=== PATIENT | female | born 1955 | race American Indian/Alaskan Native ===

== ENCOUNTER 2017-08-14 15:30 | Emergency (ER) | payer OTHER ==
[2017-08-14 16:58] VITALS: BP 200/92
[2017-08-14 18:37] LABS: Basophils % (Auto) 0.7 % (0.0-1.8); Eosinophils # (Auto) 0.2 K/mm3 (0.0-0.4); Hemoglobin 14.1 gm/dl (10.1-14.3); Lymphocytes # (Auto) 2.3 K/mm3 (1.2-5.4); Lymphocytes % (Auto) 32.7 % (13.4-35.0); Mean Corpuscular HGB Conc 33 % (30-34); Mean Corpuscular Hemoglobin 28 pg (28-32); Mean Corpuscular Volume 86 fl (79-97); Monocytes # (Auto) 0.7 K/mm3 (0.0-0.8); Monocytes % (Auto) 9.7 % (0.0-7.3); Platelet Count 209 K/mm3 (140-440); Red Blood Count 4.99 M/mm3 (3.65-5.03); Red Cell Distribution Width 13.8 % (13.2-15.2)
[2017-08-14 18:54] LABS: BUN/Creatinine Ratio 23; Blood Urea Nitrogen 18 mg/dL (7-17); Calcium 9.4 mg/dL (8.4-10.2); Hemolysis Index 38
[2017-08-14 18:59] LABS: INR 0.82 (0.87-1.13)
[2017-08-14 19:00] LABS: Partial Thromboplastin Time 25.7 Sec. (24.2-36.6)
--- NOTE | 2017-08-14 19:02 | Cat Scan Report ---
FINAL REPORT EXAM: CT HEAD/BRAIN WO CON HISTORY: neuro deficits < 6hrs or sx present upon awakening TECHNIQUE: CT examination of the head without IV contrast PRIORS: None. FINDINGS: Medial displacement of the right orbit medial wall may be from prior trauma or developmental variation. Small anterior choroidal fissure cysts bilaterally, slightly larger on the right, developmental variation. No acute air-fluid level visualized in the included air-filled sinuses. Bone windows demonstrate no acute fracture. The brain is without mass, mass effect, hemorrhage, or acute infarct. There is no extra-axial intracranial bleed, brain bleed, or midline shift. The ventricles and sulci are age-appropriate. IMPRESSION: No acute CVA, intracranial bleed, or brain mass Medial displacement of right orbit medial wall may be from prior trauma or developmental variation Likely developmental variation with suggestion of small anterior choroidal fissure cysts bilaterally
== END 2017-08-14 20:00 | disposition left against medical advice (07) ==
LOC: ED 15:30
DX: R05 Cough (principal); Z53.21 Procedure and treatment not carried out due to patient leaving prior to being seen by health care provider
CPT/HCPCS: 36415; 70450; 80048; 84484; 85025; 85610; 85670; 85730; 93005; 93010

== ENCOUNTER 2017-08-15 16:49 | Emergency (ER) | payer OTHER ==
[2017-08-15] MEDS ORDERED: ASPIRIN PO ONE (18:09)
[2017-08-15 18:28] LABS: Basophils # (Auto) 0.1 K/mm3 (0.0-0.1); Basophils % (Auto) 0.7 % (0.0-1.8); Eosinophils # (Auto) 0.2 K/mm3 (0.0-0.4); Eosinophils % (Auto) 2.5 % (0.0-4.3); Hematocrit 42.3 % (30.3-42.9); Hemoglobin 14.1 gm/dl (10.1-14.3); Lymphocytes # (Auto) 2.6 K/mm3 (1.2-5.4); Lymphocytes % (Auto) 27.4 % (13.4-35.0); Mean Corpuscular HGB Conc 33 % (30-34); Mean Corpuscular Hemoglobin 29 pg (28-32); Mean Corpuscular Volume 86 fl (79-97); Monocytes # (Auto) 0.8 K/mm3 (0.0-0.8); Monocytes % (Auto) 8.5 % (0.0-7.3); Platelet Count 215 K/mm3 (140-440); Red Blood Count 4.93 M/mm3 (3.65-5.03); Red Cell Distribution Width 13.9 % (13.2-15.2)
[2017-08-15 18:44] LABS: BUN/Creatinine Ratio 22; Blood Urea Nitrogen 20 mg/dL (7-17); Calcium 9.2 mg/dL (8.4-10.2); Hemolysis Index 41
[2017-08-15] MEDS ORDERED: NACL 0.9% 1000 ML 0 ML ONE (19:23)
[2017-08-15] MEDS ORDERED: DILAUDID ONE (19:23)
[2017-08-15] MEDS ORDERED: ZOFRAN ONE (19:28)
[2017-08-16] MEDS ORDERED: APRESOLINE IV ONE (04:29)
--- NOTE | 2017-08-16 05:23 | Emergency Department Report ---
HPI - General Chief Complaint: Headache Time Seen by Provider: 08/16/17 04:23 - HPI HPI: This is a 62 year-old female presents to the emergency department with a complaint of a one-week history of frontal and bitemporal headaches. She also presents with very elevated blood pressure. She has a history of hypertension but says that she has not been on meds for many years as she has "not had any problems." She does not currently have a primary care physician. She is a tobacco smoker and does drink beer every day, but denies any illicit drug use. She denies any vision change, slurred speech or any other neurological deficits. She's been having a few weeks of a cough and has been taking [id number] cough medication. She denies any chest pain, shortness of breath, wheezing, back pain, fever. No recent travel or sick contacts at home. ED Past Medical Hx - Past Medical History Hx Hypertension: Yes (no meds) - Surgical History Additional Surgical History: Hernia surgery, Cysts removed from ovaries, Tonsillectomy - Social History Smoking Status: Current Every Day Smoker Substance Use Type: Alcohol - Medications Home Medications: Home Medications Medication Instructions Recorded Confirmed Last Taken Type amLODIPine [Norvasc] 10 mg PO DAILY #30 tab 08/16/17 Unknown Rx ED Review of Systems ROS: Stated complaint: HEADACHE/COUGH Other details as noted in HPI Comment: All other systems reviewed and negative Constitutional: denies: chills, fever Eyes: denies: eye pain, eye discharge, vision change ENT: denies: ear pain, throat pain Respiratory: cough. denies: shortness of breath, wheezing Cardiovascular: denies: chest pain, palpitations Gastrointestinal: denies: abdominal pain, nausea, diarrhea Genitourinary: denies: urgency, dysuria, discharge Musculoskeletal: denies: back pain, joint swelling, arthralgia Skin: denies: rash, lesions Neurological: headache. denies: numbness, paresthesias Physical Exam - Physical Exam Vital Signs: Vital Signs 08/15/17 08/16/17 08/16/17 18:04 00:16 04:24 Temperature 99 F 98.6 F 98.4 F Pulse Rate 67 57 L 58 L Respiratory 16 18 16 Rate Blood Pressure 178/94 214/109 Blood Pressure 215/131 [Left] O2 Sat by Pulse 97 97 99 Oximetry 08/16/17 04:55 Temperature Pulse Rate 75 Respiratory 16 Rate Blood Pressure Blood Pressure 188/88 [Left] O2 Sat by Pulse Oximetry Physical Exam: GENERAL: The patient is well-developed well-nourished. HENT: Normocephalic. Atraumatic. Patient has moist mucous membranes. EYES: Extraocular motions are intact. Pupils equal reactive to light bilaterally. No nystagmus. NECK: Supple. Trachea is midline. CHEST/LUNGS: Lungs are clear to auscultation. No cough heard during examination. No tachypnea or chest muscle use. No respiratory distress noted. HEART/CARDIOVASCULAR: Regular. There is no tachycardia. There is no murmur. ABDOMEN: Abdomen is soft, nontender. Patient has normal bowel sounds. Obese habitus. SKIN: Skin is warm and dry. NEURO: The patient is awake, alert, and oriented. The patient is cooperative. The patient has no focal neurologic deficits. The patient has normal speech. MUSCULOSKELETAL: There is no tenderness or deformity. There is no limitation range of motion. There is no evidence of acute injury. ED Course Vital Signs 08/15/17 08/16/17 08/16/17 18:04 00:16 04:24 Temperature 99 F 98.6 F 98.4 F Pulse Rate 67 57 L 58 L Respiratory 16 18 16 Rate Blood Pressure 178/94 214/109 Blood Pressure 215/131 [Left] O2 Sat by Pulse 97 97 99 Oximetry 08/16/17 04:55 Temperature Pulse Rate 75 Respiratory 16 Rate Blood Pressure Blood Pressure 188/88 [Left] O2 Sat by Pulse Oximetry ED Medical Decision Making - Lab Data Result diagrams: 08/15/17 18:12 08/15/17 18:12 - Radiology Data Radiology results: report reviewed From 08/14/17: CT of the head does not show any acute intracranial process including no ischemia, shift, mass, bleeding or skull fracture. - Medical Decision Making Patient presents with elevated blood pressure and a history of headaches. She had a CT of the head done 2 days ago but eloped at that time prior to seeing a physician. It did not show any bleed, shift, mass or any acute process. Today the patient has labs that are mostly unremarkable. No electrolyte abnormalities , renal insufficiency, glucose abnormalities. An IV was placed and the patient was given a single dose of hydralazine and her blood pressure came down to a more reasonable level. She says that she is feeling better and her headache has almost resolved. The rest of her vitals are unremarkable. There is no focal, motor or sensory deficits in her cranial nerves are intact. Discussed tobacco cessation. We discussed dietary and lifestyle changes. She'll be started on Norvasc. She will keep a blood pressure log. She was given multiple referrals for primary care physicians. She will return to the ER with any worsening of her symptoms or any acute distress. - Differential Diagnosis tension headache, migraine,, hypertensive crisis Critical Care Time: No Critical care attestation.: If time is entered above; I have spent that time in minutes in the direct care of this critically ill patient, excluding procedure time. ED Disposition Clinical Impression: Hypertensive urgency Headache Qualifiers: Headache type: unspecified Headache chronicity pattern: episodic headache Intractability: not intractable Qualified Code(s): R51 - Headache Disposition: DC-01 TO HOME OR SELFCARE Is pt being admited?: No Condition: Stable Instructions: Hypertension (ED) Additional Instructions: Please follow up with a primary care physician in the next few days if possible. I have started you on a blood pressure medication, Norvasc/amlodipine that is to be taken once daily, usually in the morning. Try and stay away from foods that are high in salt and caffeinated products. Try and quit smoking. Keep a blood pressure log. Return to the emergency Department with any worsening of her symptoms or any acute distress. Prescriptions: amLODIPine [Norvasc] 10 mg PO DAILY #30 tab Referrals: FELIZ MERCHANT MD [Staff Physician] - 3-5 Days SHELLEY MAYS MD [Staff Physician] - 3-5 Days [facility] [Outside] - 3-5 Days Time of Disposition: 05:25
[2017-08-16 05:30] VITALS: BP 169/82
== END 2017-08-16 05:35 | disposition home or self-care (01) ==
LOC: ED 16:49
DX: I16.0 Hypertensive urgency (principal); F17.200 Nicotine dependence, unspecified, uncomplicated
CPT/HCPCS: 36415; 80048; 84484; 85025; 93005; 93010; 96374; 99284; J0360; J1170; J2405; J7030

== ENCOUNTER 2019-08-28 13:02 | Inpatient (IN) | payer OTHER ==
[2019-08-28] MEDS ORDERED: cloNIDine 0.2 MG TAB PO ONE (14:36)
--- NOTE | 2019-08-28 14:41 | Emergency Department Report ---
- General Chief complaint: High BP Stated complaint: BLURR VISION/HBP Time Seen by Provider: 08/28/19 14:28 Source: patient Mode of arrival: Ambulatory Limitations: No Limitations - History of Present Illness Initial comments: Patient is a 64-year-old female that presents emergent with complaints of left- sided weakness and difficulties walking and blurry vision and elevated blood pressure. Patient states that her blood pressure medication for 2 years. Patient states her symptoms started yesterday at 5 PM. Patient states her last a while times 5 PM yesterday. Patient denies chest pain. Patient is respiratory patient states she is having a right-sided headache. Patient states some blurry vision. Patient states her symptoms are better with rest and worse with movement. MD Complaint: focal weakness, numbness, tingling, difficulty walking -: Sudden Location: other (wilde) Severity: severe Severity scale (0 -10): 8 Quality: sharp Consistency: constant Improves with: rest Worsens with: movement Context: other Associated Symptoms: headaches. denies: chest pain, confusion, dark stools, diaphoresis, dysuria, easy bruising, fever/chills, loss of appetite, nausea/vomiting, myalgias, rash, shortness of breath, syncope - Related Data Previous Rx's Medication Instructions Recorded Last Taken Type amLODIPine 10 mg PO DAILY #30 tab 08/16/17 Unknown Rx Allergies Allergy/AdvReac Type Severity Reaction Status Date / Time No Known Allergies Allergy Verified 08/28/19 13:44 ED Review of Systems ROS: Stated complaint: BLURR VISION/HBP Other details as noted in HPI Constitutional: denies: chills, fever Eyes: vision change. denies: eye pain, eye discharge ENT: denies: ear pain, throat pain Respiratory: denies: cough, shortness of breath, wheezing Cardiovascular: denies: chest pain, palpitations Endocrine: no symptoms reported Gastrointestinal: denies: abdominal pain, nausea, diarrhea Genitourinary: denies: urgency, dysuria, discharge Musculoskeletal: denies: back pain, joint swelling, arthralgia Skin: denies: rash, lesions Neurological: as per HPI, headache, weakness, other. denies: paresthesias Psychiatric: denies: anxiety, depression Hematological/Lymphatic: denies: easy bleeding, easy bruising ED Past Medical Hx - Past Medical History Previous Medical History?: Yes Hx Hypertension: Yes (no meds) - Surgical History Past Surgical History?: Yes Additional Surgical History: Hernia surgery, Cysts removed from ovaries, Tonsillectomy - Family History Family history: no significant - Social History Smoking Status: Current Every Day Smoker Substance Use Type: Alcohol - Medications Home Medications: Home Medications Medication Instructions Recorded Confirmed Last Taken Type amLODIPine 10 mg PO DAILY #30 tab 08/16/17 08/28/19 Unknown Rx ED Physical Exam - General Limitations: No Limitations General appearance: alert, in no apparent distress - Head Head exam: Present: atraumatic, normocephalic - Eye Eye exam: Present: normal appearance, PERRL Pupils: Present: normal accommodation - ENT ENT exam: Present: mucous membranes moist - Neck Neck exam: Present: normal inspection - Respiratory Respiratory exam: Present: normal lung sounds bilaterally. Absent: respiratory distress, wheezes, rales - Cardiovascular Cardiovascular Exam: Present: regular rate, normal rhythm. Absent: systolic murmur, diastolic murmur, rubs, gallop - GI/Abdominal GI/Abdominal exam: Present: soft, normal bowel sounds. Absent: distended, tenderness, guarding - Rectal Rectal exam: Present: deferred - Extremities Exam Extremities exam: Present: normal inspection, full ROM. Absent: tenderness - Back Exam Back exam: Present: normal inspection, full ROM. Absent: tenderness - Neurological Exam Neurological exam: Present: alert, oriented X3 - Psychiatric Psychiatric exam: Present: normal affect, normal mood - Skin Skin exam: Present: warm, dry, intact, normal color. Absent: rash - Assessment Assessment Interval: Baseline - Level of Consciousness 1a. Level of Consciousness: alert/keenly responsive - LOC Questions 1b. LOC Questions: answers both correctly - LOC Command 1c. LOC Commands: performs tasks correctly - Best Gaze 2. Best Gaze: normal - Visual 3. Visual: partial hemianopia - Facial Palsy 4. Facial Palsy: normal symmetrical movement - Motor Arm 5a. Motor Arm Left: no drift 5b. Motor Arm Right: no drift - Motor Leg 6a. Motor Leg Left: no drift 6b. Motor Leg Right: no drift - Limb Ataxia 7. Limb Ataxia: absent - Sensory 8. Sensory: normal - Best Language 9. Best Language: no aphasia - Dysarthria 10. Dysarthria: normal - Extinction and Inattention 11. Extinction/Inattention: no abnormality - Scoring Total Score: 1 Stroke Severity: Minor Stroke ED Course Vital Signs 08/28/19 08/28/19 08/28/19 13:11 15:53 16:05 Temperature 98.2 F Pulse Rate 65 53 L Respiratory 14 16 Rate Blood Pressure 210/120 Blood Pressure 250/112 193/118 [Left] O2 Sat by Pulse 98 96 Oximetry 08/28/19 08/28/19 08/28/19 17:33 18:09 18:52 Temperature Pulse Rate 50 L 84 50 L Respiratory 16 16 16 Rate Blood Pressure Blood Pressure 182/101 203/111 169/78 [Left] O2 Sat by Pulse 100 98 100 Oximetry - Reevaluation(s) Reevaluation #1: Initial evaluation. Patient's blood pressure significantly elevated at 270/139. Patient will be given clonidine 0.2 mg. We will continue to monitor blood pressure. Blood pressure goal No more than 20%. 08/28/19 14:28 Reevaluation #2: Recent blood pressure is improved. We will continue to slowly bring down her blood pressure. I discussed the case with a neurologist neurologist does not recommend any further endovascular procedures. I discussed results with the patient. I discussed plan of care with patient. Patient agrees with plan of care and admission. Patient will be admitted to the hospitalist service. 08/28/19 17:34 Reevaluation #3: Patient's blood pressure continues to fluctuate. Patient was placed on nicardipine drip so he can properly manage her blood pressure. 08/28/19 18:21 - Consultations Consultation #1: Discussed case with neurologist. Neurologist recommends CTA immediately. Patient is going to CT now. 08/28/19 14:57 Consultation #2: Hospitalist consult for admission. Os was to the patient. Patient to be admitted to the ICU. Bridge orders place. 08/28/19 17:35 ED Medical Decision Making - Lab Data Result diagrams: 08/28/19 14:44 08/28/19 14:44 - EKG Data -: EKG Interpreted by Me EKG shows normal: sinus rhythm, axis, intervals, QRS complexes, ST-T waves Rate: bradycardia - Radiology Data Radiology results: report reviewed CT head/brain wo con INDICATION / CLINICAL INFORMATION: 64 years Female; MAIN: CODE STROKE CALL [phone]. TECHNIQUE: Routine CT head without contrast. All CT scans at this location are performed using CT dose reduction for ALARA by means of automated exposure control. COMPARISON: 08/14/2017 FINDINGS: BRAIN / INTRACRANIAL CONTENTS: Branch [employer] CLERK infarct seen on the right, which is subacute in age, predominantly involving the occipital lobe. Calcarine cortex is certainly involved. There is also a low density area in the splenium of the corpus callosum, which may also represent ischemia. No signs of hemorrhagic transformation. Old perivascular space seen in the inferior gangliocapsular region on the right. Otherwise, no acute hemorrhage, mass effect, midline shift, hydrocephalus, or acute, large territorial infarct. No chronic infarct or atrophy appreciated. No significant white matter abnormality. CRANIOCERVICAL JUNCTION: No significant abnormality. ORBITS: Focal dehiscent seen in the lamina papyracea on the right. SINUSES / MASTOIDS: There may be minimal mucosal thickening in the mastoids. ADDITIONAL FINDINGS: Atherosclerotic disease is seen in the anterior and posterior circulation. IMPRESSION: 1. Ischemic changes seen in the right EX[employer] DOC[employer]ENTS CLERK territory as described above. No signs of hemorrhagic transformation. ADDENDUM Addendum: Please note right vertebral artery is occluded at the extraspinal segment. No significant narrowing in the intracranial internal carotid arteries. Signer Name: Guerita Mcghee MD Signed: 08/28/2019 5:02 PM Workstation Name: [id number] Addendum Transcribed By: TOMASA Addendum Dictated By: Guerita Miner MD Addendum Electronically Authenticated By: Guerita Miner MD Addendum Signed Date/Time: 08/28/191701 DD/ TD/TT: / CTA HEAD WITH CONTRAST HISTORY: Stroke COMPARISON: None. TECHNIQUE: Routine non-contrast CT Head, CTA of the head and post-contrast CT Head are performed. 3-D/MIP reformats postprocessed. All CT scans at this location are performed us ing CT dose reduction for ALARA by means of automated exposure control CONTRAST: 100 ml of Omnipaque 350 FINDINGS: CTA Head: Intracranial vertebral arteries: Right internal carotid artery is occluded at the extraspinal segment. Calcified atheromatous changes are seen in the intradural segment of left vertebral artery. Origin of left PICA is normal. Circulation from the left side is supplying the right PICA. Basilar artery: No significant abnormality. Basilar tip is normal. Posterior cerebral arteries: Left posterior cerebral artery is normal. Right posterior cerebral artery in the junction of P1 and P2 segments. Segment. Both posterior communicating arteries are contributing to posterior cerebral arteries more on the right side. Atheromatous changes are seen in the right posterior communicating artery. Decreased flow is seen in the right posterior cerebral artery. Intracranial internal carotid arteries: No significant abnormality. Anterior cerebral arteries: No significant stenosis seen at the origin of right anterior cerebral artery. Origin of left anterior cerebral artery is normal. Both T1 and proximal A2 segments are normal. Middle cerebral arteries: Both the M1 segments are normal. Small vessel disease seen at all 3 circulation. Dural venous sinuses:Not optimally opacified. No significant abnormality. Additional findings: None. IMPRESSION: 1. Flow in the right posterior cerebral artery is limited. Small vessel disease in all 3 territories. CTA NECK WITH CONTRAST HISTORY: Weakness COMPARISON: CT scan of the head obtained earlier today TECHNIQUE: Routine CTA of the neck was performed. 3-D/MIP reformats were postprocessed. Percentage stenosis is determined by direct quantitative measurements of diseased internal carotid artery diameter compared with normal distal internal carotid artery reference segments or by criteria similar to NASCET where applicable.All CT scans at this location are performed using CT dose reduction for ALARA by means of automated exposure control CONTRAST: 100 ml of Isovue 370 FINDINGS: Aortic arch: No significant abnormality. Cervical vertebral arteries: Venous contamination obscures the details of the proximal vertebral arteries bilaterally. Left vertebral origin appears normal. Right vertebral origin is also normal. However, right vertebral artery is smaller in size and appears to be occluded at the extraspinal level. Left vertebral artery continues as basilar artery. Common carotid arteries: No significant abnormality. Carotid bifurcations: Right carotid bifurcation is normal. Atheromatous plaque is seen in the distal left common carotid artery extending into the proximal left internal carotid artery with very minimal (approximately 30%). Cervical internal carotid arteries: No significant abnormality. Additional findings: None. 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 Patient's NIH O+ for minor stroke. Patient had a "stroke (initiated immediately upon arrival. Patient's head CT is negative for hemorrhage but shows subacute stroke. Patient's CTA head and neck done and shows occlusions. Due the patient is outside the window for endovascular treatment and TPA. Patient's blood pressure control as fluctuation patient was placed on nicardipine drip in order to better control her blood pressure. Patient's blood pressure: 180-190. Patient has been off her blood pressure medications for 2 years and blood pressure upon arrival was 270/139. Patient la bs unremarkable. Patient admitted to the ICU. - Differential Diagnosis mode hypertension, stroke, left-sided weakness, visual changes. Critical Care Time: Yes Critical care time in (mins) excluding proc time.: 55 Critical care attestation.: If time is entered above; I have spent that time in minutes in the direct care of this critically ill patient, excluding procedure time. Critical Care Time: 55 minutes ED Disposition Clinical Impression: Weakness, Blurred vision, Left-sided weakness, Numbness, Malignant hypertension, Noncompliance Headache Qualifiers: Headache type: unspecified Headache chronicity pattern: acute headache Intra ctability: intractable Qualified Code(s): R51 - Headache CVA (cerebral vascular accident) Qualifiers: CVA mechanism: unspecified Qualified Code(s): I63.9 - Cerebral infarction, unspecified Disposition: DC-09 OP ADMIT IP TO THIS HOSP Is pt being admited?: Yes Does the pt Need Aspirin: No Condition: Critical Time of Disposition: 17:34
[2019-08-28 14:51] LABS: Basophils # (Auto) 0.1 K/mm3 (0.0-0.1); Basophils % (Auto) 0.5 % (0.0-1.8); Eosinophils # (Auto) 0.1 K/mm3 (0.0-0.4); Eosinophils % (Auto) 1.4 % (0.0-4.3); Hematocrit 46.6 % (30.3-42.9); Hemoglobin 15.4 gm/dl (10.1-14.3); Lymphocytes # (Auto) 2.3 K/mm3 (1.2-5.4); Lymphocytes % (Auto) 23.9 % (13.4-35.0); Mean Corpuscular HGB Conc 33 % (30-34); Mean Corpuscular Volume 86 fl (79-97); Monocytes # (Auto) 0.7 K/mm3 (0.0-0.8); Monocytes % (Auto) 7.2 % (0.0-7.3); Platelet Count 276 K/mm3 (140-440); Red Blood Count 5.44 M/mm3 (3.65-5.03); Red Cell Distribution Width 14.4 % (13.2-15.2)
[2019-08-28 15:01] LABS: INR 0.94 (0.87-1.13)
[2019-08-28 15:02] LABS: Partial Thromboplastin Time 25.8 Sec. (24.2-36.6); Thrombin Time 16.5 Sec. (15.1-19.6)
[2019-08-28 15:03] LABS: BUN/Creatinine Ratio 18; Blood Urea Nitrogen 21 mg/dL (7-17); Calcium 9.9 mg/dL (8.4-10.2); Hemolysis Index 3
--- NOTE | 2019-08-28 15:06 | Consultation ---
History of Present Illness Consult date: 08/28/19 Medications and Allergies Allergies Allergy/AdvReac Type Severity Reaction Status Date / Time No Known Allergies Allergy Verified 08/28/19 13:44 Home Medications Medication Instructions Recorded Confirmed Last Taken Type amLODIPine 10 mg PO DAILY #30 tab 08/16/17 Unknown Rx Physical Examination - Vital Signs Vital Signs: Vital Signs Temp Pulse Resp BP Pulse Ox 98.2 F 65 14 250/112 98 08/28/19 13:11 08/28/19 13:11 08/28/19 13:11 08/28/19 13:11 08/28/19 13:11 Results - Laboratory Findings CBC and BMP: 08/28/19 14:44 08/28/19 14:44 Abnormal Lab Findings: Abnormal Labs 08/28/19 08/28/19 14:44 14:44 RBC 5.44 H Hgb 15.4 H Hct 46.6 H BUN 21 H Glucose 102 H Assessment and Plan [facility] Date of Service: 08/28/2019 14:34:57 Impression: RO Acute Ischemic Stroke vs PRES (Posterior reversible encephalopathy syndrome) vs hypertensive emergency Comments: patient with history of hypertension, presents with blurred vision for about 24 hours, found to have extremely high Blood Pressure, possible small field cut on the left, last time known well>4.5 hours therefore not a candidate for IV tPA. will do STAT head and neck CTA to investigate for Large Vessel Occlusion. Mechanism of Stroke: Possible Thromboembolic Small Vessel Disease Metrics: Last Known Well: 08/27/2019 15:00:00 [facility] Notification Time: 08/28/2019 14:34:22 Arrival Time: 08/28/2019 13:02:00 Stamp Time: 08/28/2019 14:34:57 Time First Login Attempt: 08/28/2019 14:40:59 Video Start Time: 08/28/2019 14:40:59 Symptoms: blurred vision NIHSS Start Assessment Time: 08/28/2019 14:42:41 Patient is not a candidate for tPA. Patient was not deemed candidate for tPA thrombolytics because of Last Well Known Above 4.5 Hours. Video End Time: 08/28/2019 15:04:27 CT head was reviewed. Advanced imaging CTA head and neck obtained. ED Physician notified of diagnostic impression and management plan on 08/28/2019 14:59:35 Our recommendations are outlined below. Recommendations: Activate Stroke Protocol Admission/Order Set Stroke/Telemetry Floor Neuro Checks Bedside Swallow Eval DVT Prophylaxis IV Fluids, Normal Saline Head of Bed Below 30 Degrees Euglycemia and Avoid Hyperthermia (PRN Acetaminophen) Antiplatelet Therapy Recommended Gentle decrease in Systolic Blood Pressure (~15%) in the ER Recommended Scan: MRI Head Without Contrast Lipid Panel to Be Obtained, if Not Done in the Last Three Months Therapies: Physical Therapy, Occupational Therapy, Speech Therapy Assessment When Applicable Dysphaghia Screen: Swallow Evaluation, Bedside NPO Until Swallow Evaluation DVT prophylaxis: SCDs, Pneumatic Compression Disposition: Follow up with Teleneurology Follow up Sign Out: Discussed with Emergency Department Provider History of Present Illness: Patient is a 64 year old Female. Patient was brought by private transportation with symptoms of blurred vision with history of hypertension last known well: 08/27/2019 15:00 developed blurred vision Blood Pressure: 255/128 CT head was reviewed. Examination: 1A: Level of Consciousness - Alert; keenly responsive + 0 1B: Ask Month and Age - Both Questions Right + 0 1C: Blink Eyes & Squeeze Hands - Performs Both Tasks + 0 2: Test Horizontal Extraocular Movements - Normal + 0 3: Test Visual Lopez - Partial Hemianopia + 1 4: Test Facial Palsy (Use Grimace if Obtunded) - Normal symmetry + 0 5A: Test Left Arm Motor Drift - No Drift for 10 Seconds + 0 5B: Test Right Arm Motor Drift - No Drift for 10 Seconds + 0 6A: Test Left Leg Motor Drift - No Drift for 5 Seconds + 0 6B: Test Right Leg Motor Drift - No Drift for 5 Seconds + 0 7: Test Limb Ataxia (FNF/Heel-Conway) - No Ataxia + 0 8: Test Sensation - Normal; No sensory loss + 0 9: Test Language/Aphasia - Normal; No aphasia + 0 10: Test Dysarthria - Normal + 0 11: Test Extinction/Inattention - No abnormality + 0 NIHSS Score: 1 Patient was informed the Neurology Consult would happen via TeleHealth consult by way of interactive audio and video telecommunications and consented to [facility] care in this manner. Due to the immediate potential for life-threatening deterioration due to underlying acute neurologic illness, I spent 35 minutes providing critical care. This time includes time for face to face visit via telemedicine, review of medical records, imaging studies and discussion of findings with providers, the patient and/or family. Dr Matt Kelly [facility] Case [id number]
--- NOTE | 2019-08-28 15:38 | Cat Scan Report ---
CT head/brain wo con INDICATION / CLINICAL INFORMATION: 64 years Female; MAIN: CODE STROKE CALL [phone]. TECHNIQUE: Routine CT head without contrast. All CT scans at this location are performed using CT dos e reduction for ALARA by means of automated exposure control. COMPARISON: 08/14/2017 FINDINGS: BRAIN / INTRACRANIAL CONTENTS: Branch ACID PATROLLER infarct seen on the right, which is subacute in age, predom inantly involving the occipital lobe. Calcarine cortex is certainly involved. There is also a low den sity area in the splenium of the corpus callosum, which may also represent ischemia. No signs of hemo rrhagic transformation. Old perivascular space seen in the inferior gangliocapsular region on the right. Otherwise, no acute hemorrhage, mass effect, midline shift, hydrocephalus, or acute, large territori al infarct. No chronic infarct or atrophy appreciated. No significant white matter abnormality. CRANIOCERVICAL JUNCTION: No significant abnormality. ORBITS: Focal dehiscent seen in the lamina papyracea on the right. SINUSES / MASTOIDS: There may be minimal mucosal thickening in the mastoids. ADDITIONAL FINDINGS: Atherosclerotic disease is seen in the anterior and posterior circulation. IMPRESSION: 1. Ischemic changes seen in the right ACID PATROLLER territory as described above. No signs of hemorrhagic trans formation. This exam was performed as part of a code stroke protocol. The exam was completed on 08/28/2019 2:16 P M. The exam was reviewed at 2:[address] Fernandez was notified at 2:30 PM. Signer Name: Hugh Gomez MD, III Signed: 08/28/2019 3:34 PM Workstation Name: [id number]
--- NOTE | 2019-08-28 16:48 | Cat Scan Report ---
CTA HEAD WITH CONTRAST HISTORY: Stroke COMPARISON: None. TECHNIQUE: Routine non-contrast CT Head, CTA of the head and post-contrast CT Head are performed. 3-D /MIP reformats postprocessed. All CT scans at this location are performed using CT dose reduction for ALARA by means of automated exposure control CONTRAST: 100 ml of Omnipaque 350 FINDINGS: CTA Head: Intracranial vertebral arteries: Right internal carotid artery is occluded at the extraspinal segment . Calcified atheromatous changes are seen in the intradural segment of left vertebral artery. Origin of left PICA is normal. Circulation from the left side is supplying the right PICA. Basilar artery: No significant abnormality. Basilar tip is normal. Posterior cerebral arteries: Left posterior cerebral artery is normal. Right posterior cerebral arter y in the junction of P1 and P2 segments. Segment. Both posterior communicating arteries are contribut ing to posterior cerebral arteries more on the right side. Atheromatous changes are seen in the right posterior communicating artery. Decreased flow is seen in the right posterior cerebral artery. Intracranial internal carotid arteries: No significant abnormality. Anterior cerebral arteries: No significant stenosis seen at the origin of right anterior cerebral art malcom. Origin of left anterior cerebral artery is normal. Both T1 and proximal A2 segments are normal. Middle cerebral arteries: Both the M1 segments are normal. Small vessel disease seen at all 3 circulation. Dural venous sinuses:Not optimally opacified. No significant abnormality. Additional findings: None. IMPRESSION: 1. Flow in the right posterior cerebral artery is limited. Small vessel disease in all 3 territories. CTA NECK WITH CONTRAST HISTORY: Weakness COMPARISON: CT scan of the head obtained earlier today TECHNIQUE: Routine CTA of the neck was performed. 3-D/MIP reformats were postprocessed. Percentage s tenosis is determined by direct quantitative measurements of diseased internal carotid artery diamete r compared with normal distal internal carotid artery reference segments or by criteria similar to NA SCET where applicable.All CT scans at this location are performed using CT dose reduction for ALARA b y means of automated exposure control CONTRAST: 100 ml of Isovue 370 FINDINGS: Aortic arch: No significant abnormality. Cervical vertebral arteries: Venous contamination obscures the details of the proximal vertebral rod radha bilaterally. Left vertebral origin appears normal. Right vertebral origin is also normal. Howeve r, right vertebral artery is smaller in size and appears to be occluded at the extraspinal level. Lef t vertebral artery continues as basilar artery. Common carotid arteries: No significant abnormality. Carotid bifurcations: Right carotid bifurcation is normal. Atheromatous plaque is seen in the distal left common carotid artery extending into the proximal left internal carotid artery with very minimal (approximately 30%). Cervical internal carotid arteries: No significant abnormality. Additional findings: None. IMPRESSION: Atheromatous plaque with approximately 30% stenoses in the proximal left internal carotid artery Left vertebral artery continues as basilar artery Occluded right vertebral artery at the extraspinal segment Signer Name: Guerita Mcghee MD Signed: 08/28/2019 4:44 PM Workstation Name: [id number]
--- NOTE | 2019-08-28 17:05 | Cat Scan Report ---
CTA NECK WITH CONTRAST HISTORY: Right posterior cerebral artery territory infarction COMPARISON: None. TECHNIQUE: Routine CTA of the neck was performed. 3-D/MIP reformats were postprocessed. Percentage s tenosis is determined by direct quantitative measurements of diseased internal carotid artery diamete r compared with normal distal internal carotid artery reference segments or by criteria similar to NA SCET where applicable.All CT scans at this location are performed using CT dose reduction for ALARA b y means of automated exposure control CONTRAST: 100 ml of Isovue 370 FINDINGS: Aortic arch: No significant abnormality. Cervical vertebral arteries: Venous contamination obscuring the details of the proximal vertebral art eries bilaterally. However, I believe both vertebral origins are normal. Right vertebral artery is sm aller in size and is occluded at the extraspinal level (between C1 and foramen magnum. Left vertebral artery continues as basilar artery. Common carotid arteries: No significant abnormality. Carotid bifurcations: Right carotid bifurcation is normal. Atheromatous plaque is seen in the distal left common carotid artery extending into the proximal left internal carotid artery with the about 30% narrowing. Cervical internal carotid arteries: No significant abnormality. Additional findings: None. IMPRESSION: Atheromatous plaque in the left common carotid bifurcation with the 30% narrowing Signer Name: Guerita Mcghee MD Signed: 08/28/2019 5:01 PM Workstation Name: [id number]
[2019-08-28] MEDS ORDERED: ASPIRIN 325 MG TAB PO ONE (17:32)
[2019-08-28] MEDS ORDERED: niCARdipine 50 MG in SODIUM CHLORIDE 0.9% 250ML 230 ML IV SCH (19:00)
--- NOTE | 2019-08-28 23:20 | History and Physical Report ---
History of Present Illness Date of examination: 08/28/19 Date of admission: 08/28/19 17:55 Chief complaint: Left-sided weakness and blurred vision for the last 4 and half hours History of present illness: 64-year-old female with history of hypertension comes in for left-sided weakness, difficulty walking and blurred vision. Also elevated blood pressure. Patient has not been taking her blood pressure medication for 2 years. She thought it was not necessary to continue the blood pressure medication because she was feeling well. Has left-sided weakness and blurred vision more than 4- 1/2 hours prior to admission to the emergency room. Code stroke was called. Patient continues to have weakness on the left side with no improvement. Unable to walk. No nasal regurgitation of fluids. No diplopia. No ataxia. Past Medical History Previous Medical History?: Yes Hypertension: Yes (no meds) Surgical History Past Surgical History?: Yes Additional Surgical History: Hernia surgery, Cysts removed from ovaries, Tonsillectomy Family History Family history: no significant Social History Smoking Status: Current Every Day Smoker Substance Use Type: Alcohol Medications Home Medications: Home Medications Medication Instructions Recorded Confirmed Last Taken Type amLODIPine 10 mg PO DAILY #30 tab 08/16/17 08/28/19 Unknown Rx Review of Systems ROS: Stated complaint: BLURR VISION/HBP Other details as noted in HPI Constitutional: denies: chills, fever Eyes: vision change. denies: eye pain, eye discharge ENT: denies: ear pain, throat pain Respiratory: denies: cough, shortness of breath, wheezing Cardiovascular: denies: chest pain, palpitations Endocrine: no symptoms reported Gastrointestinal: denies: abdominal pain, nausea, diarrhea Genitourinary: denies: urgency, dysuria, discharge Musculoskeletal: denies: back pain, joint swelling, arthralgia Skin: denies: rash, lesions Neurological: as per HPI, headache, weakness, other. denies: paresthesias Psychiatric: denies: anxiety, depression Hematological/Lymphatic: denies: easy bleeding, easy bruising Medications and Allergies Allergies Allergy/AdvReac Type Severity Reaction Status Date / Time No Known Allergies Allergy Verified 08/28/19 13:44 Home Medications Medication Instructions Recorded Confirmed Last Taken Type amLODIPine 10 mg PO DAILY #30 tab 08/16/17 08/28/19 Unknown Rx Active Meds: Active Medications Nicardipine HCl 50 mg/ Sodium (Chloride) 250 mls @ 25 mls/hr IV TITR JACQUELINE; Protocol Last Admin: 08/28/19 20:10 Dose: 5 mg/hr, 25 mls/hr Documented by: Exam - Constitutional Vitals: Temp Pulse Resp BP Pulse Ox 98.2 F 55 L 17 165/75 97 08/28/19 13:11 08/28/19 23:01 08/28/19 23:01 08/28/19 23:01 08/28/19 23:01 General appearance: Present: no acute distress, well-nourished - EENT Eyes: Present: PERRL ENT: hearing intact, clear oral mucosa - Neck Neck: Present: supple, normal ROM - Respiratory Respiratory effort: normal Respiratory: bilateral: CTA - Cardiovascular Heart rate: 55 Rhythm: regular Heart Sounds: Present: S1 & S2. Absent: rub, click - Extremities Extremities: no ischemia, pulses intact, pulses symmetrical, No edema Peripheral Pulses: within normal limits - Abdominal General gastrointestinal: Present: soft, non-tender, non-distended, normal bowel sounds Female genitourinary: Present: normal - Rectal Rectal Exam: deferred - Integumentary Integumentary: Present: clear, warm, dry - Musculoskeletal Musculoskeletal: gait normal, strength equal bilaterally - Psychiatric Psychiatric: appropriate mood/affect, intact judgment & insight - Neurologic Neurologic: CNII-XII intact, moves all extremities - Allied Health Allied health notes reviewed: nursing, case management Results - Labs CBC & Chem 7: 08/28/19 14:44 08/28/19 14:44 Labs: Laboratory Last Values WBC 9.6 K/mm3 (4.5-11.0) 08/28/19 14:44 RBC 5.44 M/mm3 (3.65-5.03) H 08/28/19 14:44 Hgb 15.4 gm/dl (10.1-14.3) H 08/28/19 14:44 Hct 46.6 % (30.3-42.9) H 08/28/19 14:44 MCV 86 fl (79-97) 08/28/19 14:44 MCH 28 pg (28-32) 08/28/19 14:44 MCHC 33 % (30-34) 08/28/19 14:44 RDW 14.4 % (13.2-15.2) 08/28/19 14:44 Plt Count 276 K/mm3 (140-440) 08/28/19 14:44 Lymph % (Auto) 23.9 % (13.4-35.0) 08/28/19 14:44 Hayes % (Auto) 7.2 % (0.0-7.3) 08/28/19 14:44 Eos % (Auto) 1.4 % (0.0-4.3) 08/28/19 14:44 Baso % (Auto) 0.5 % (0.0-1.8) 08/28/19 14:44 Lymph # 2.3 K/mm3 (1.2-5.4) 08/28/19 14:44 Hayes # 0.7 K/mm3 (0.0-0.8) 08/28/19 14:44 Eos # 0.1 K/mm3 (0.0-0.4) 08/28/19 14:44 Baso # 0.1 K/mm3 (0.0-0.1) 08/28/19 14:44 Seg Neutrophils % 67.0 % (40.0-70.0) 08/28/19 14:44 Seg Neutrophils # 6.4 K/mm3 (1.8-7.7) 08/28/19 14:44 PT 12.7 Sec. (12.2-14.9) 08/28/19 14:44 INR 0.94 (0.87-1.13) 08/28/19 14:44 APTT 25.8 Sec. (24.2-36.6) 08/28/19 14:44 Thrombin Time 16.5 Sec. (15.1-19.6) 08/28/19 14:44 Sodium 140 mmol/L (137-145) 08/28/19 14:44 Potassium 3.8 mmol/L (3.6-5.0) 08/28/19 14:44 Chloride 102.1 mmol/L (98-107) 08/28/19 14:44 Carbon Dioxide 22 mmol/L (22-30) 08/28/19 14:44 Anion Gap 20 mmol/L 08/28/19 14:44 BUN 21 mg/dL (7-17) H 08/28/19 14:44 Creatinine 1.2 mg/dL (0.7-1.2) 08/28/19 14:44 Estimated GFR 55 ml/min 08/28/19 14:44 BUN/Creatinine Ratio 18 % 08/28/19 14:44 Glucose 102 mg/dL (65-100) H 08/28/19 14:44 Calcium 9.9 mg/dL (8.4-10.2) 08/28/19 14:44 Troponin T < 0.010 ng/mL (0.00-0.029) 08/28/19 14:44 Short CBC 08/28/19 Range/Units 14:44 WBC 9.6 (4.5-11.0) K/mm3 Hgb 15.4 H (10.1-14.3) gm/dl Hct 46.6 H (30.3-42.9) % Plt Count 276 (140-440) K/mm3 [facility] 08/28/19 14:44 Sodium 140 Potassium 3.8 Chloride 102.1 Carbon Dioxide 22 BUN 21 H Creatinine 1.2 Glucose 102 H Calcium 9.9 Cardiac Enzymes 08/28/19 Range/Units 14:44 Troponin T < 0.010 (0.00-0.029) ng/mL Short CBC 08/28/19 Range/Units 14:44 WBC 9.6 (4.5-11.0) K/mm3 Hgb 15.4 H (10.1-14.3) gm/dl Hct 46.6 H (30.3-42.9) % Plt Count 276 (140-440) K/mm3 [facility] 08/28/19 14:44 Sodium 140 Potassium 3.8 Chloride 102.1 Carbon Dioxide 22 BUN 21 H Creatinine 1.2 Glucose 102 H Calcium 9.9 Cardiac Enzymes 08/28/19 Range/Units 14:44 Troponin T < 0.010 (0.00-0.029) ng/mL - Imaging and Cardiology EKG: report reviewed (Sinus bradycardia, heart rate of 55/min, left ventricular hypertrophy with secondary repolarization abnormality) Imaging and Cardiology: Head CT IMPRESSION: 1. Ischemic changes seen in the right INDUSTRIAL HYGENIST territory as described above. No signs of hemorrhagic transformation. This exam was performed as part of a code stroke protocol. The exam was completed on 08/28/2019 2:16 PM. The exam was reviewed at 2:[address] Fernandez was notified at 2:30 PM. Head CTA IMPRESSION: Atheromatous plaque with approximately 30% stenoses in the proximal left internal carotid artery Left vertebral artery continues as basilar artery Occluded right vertebral artery at the extraspinal segment Neck CTA IMPRESSION: Atheromatous plaque in the left common carotid bifurcation with the 30% narrowing Assessment and Plan Advance Directives: Yes (Full code) VTE prophylaxis?: Chemical Plan of care discussed with patient/family: Yes - Patient Problems (1) Acute CVA (cerebrovascular accident) Current Visit: Yes Status: Acute Plan to address problem: Patient has completed stroke in the right INDUSTRIAL HYGENIST territory Not a candidate for TPA Aspirin and Plavix initiated Stroke work-up including MRI, carotid Doppler scan and echocardiogram ordered No MRI because CTA of the head and CT of the neck were already done CT of the head showing right vertebral artery occlusion (2) Hypertension Current Visit: Yes Status: Chronic Qualifiers: Hypertension type: essential hypertension Qualified Code(s): I10 - Essential (primary) hypertension Plan to address problem: Continue antihypertensives (3) Hypertensive emergency Current Visit: Yes Status: Acute Plan to address problem: Patient's blood pressure has been very high 225/112 Patient initiated on Cardene drip (4) Noncompliance Current Visit: Yes Status: Acute Plan to address problem: Patient counseled about compliance and the ill effects of high blood pressure--especially uncontrolled (5) DVT prophylaxis Current Visit: Yes Status: Acute Plan to address problem: On heparin and GI prophylaxis
[2019-08-28] MEDS ORDERED: ONDANSETRON 4 MG/2 ML INJ IV PRN (23:30)
[2019-08-28] MEDS ORDERED: HYDROmorphone 1 MG/1 ML INJ IV PRN (23:30)
[2019-08-29 00:47] LABS: Basophils # (Auto) 0.1 K/mm3 (0.0-0.1); Basophils % (Auto) 0.6 % (0.0-1.8); Eosinophils # (Auto) 0.2 K/mm3 (0.0-0.4); Eosinophils % (Auto) 1.8 % (0.0-4.3); Hematocrit 40.3 % (30.3-42.9); Hemoglobin 13.5 gm/dl (10.1-14.3); Lymphocytes # (Auto) 2.5 K/mm3 (1.2-5.4); Lymphocytes % (Auto) 26.1 % (13.4-35.0); Mean Corpuscular HGB Conc 34 % (30-34); Mean Corpuscular Volume 85 fl (79-97); Monocytes # (Auto) 0.9 K/mm3 (0.0-0.8); Monocytes % (Auto) 9.4 % (0.0-7.3); Platelet Count 233 K/mm3 (140-440); Red Blood Count 4.73 M/mm3 (3.65-5.03); Red Cell Distribution Width 14.4 % (13.2-15.2)
[2019-08-29 01:09] LABS: Alanine Aminotransferase 27 units/L (7-56); Albumin 3.9 g/dL (3.9-5); BUN/Creatinine Ratio 17; Blood Urea Nitrogen 19 mg/dL (7-17); Calcium 9.2 mg/dL (8.4-10.2); Hemolysis Index 9
[2019-08-29] MEDS ORDERED: oxyCODONE /ACETAMINOPHEN 5-325MG TAB ONE ×2 (01:44→10:05)
[2019-08-29] MEDS: oxyCODONE /ACETAMINOPHEN 5-325MG TAB PO PRN ×4 (01:50→22:21)
[2019-08-29] MEDS: CLOPIDOGREL 75 MG TAB PO SCH ×2 (02:20→10:22)
[2019-08-29] MEDS: FAMOTIDINE 20 MG TAB PO SCH ×3 (02:20→22:20)
[2019-08-29 05:18] LABS: Chol/HDL Ratio 2.46 %
[2019-08-29] MEDS ORDERED: amLODIPine 10 MG TAB PO SCH (10:00)
[2019-08-29] MEDS ORDERED: FLU VACC QUAD 2019-20 (3 YR UP)/PF 60 MCG/0.5 ML SYRINGE IM ONE (10:09)
[2019-08-29] MEDS ORDERED: hydrALAZINE 20 MG/1 ML INJ IV ONE (10:10)
[2019-08-29] MEDS ORDERED: hydrALAZINE 20 MG/1 ML INJ ONE (10:14)
[2019-08-29] MEDS ORDERED: amLODIPine 10 MG TAB ONE (10:21)
[2019-08-29] MEDS ORDERED: ASPIRIN 325 MG TAB ONE (10:21)
[2019-08-29] MEDS: ASPIRIN 325 MG TAB PO SCH (10:22)
[2019-08-29] MEDS ORDERED: LORazepam 2 MG/ML VIAL IV ONE (11:04)
[2019-08-29] MEDS ORDERED: LORazepam 2 MG/ML VIAL ONE (11:12)
--- NOTE | 2019-08-29 14:49 | Progress Note ---
Assessment and Plan Assessment and plan: Patient is a 64 yo woman with a history of hypertension and tobacco dependency who presents to [facility] ED with left sided weakness, headaches, nausea, difficulty walking and vision disturbances. Patient was found to have right CAUSTIC MIXER stroke on CT head and No tPA given because last well known time >4.5 hours. * Head CT IMPRESSION: 1. Ischemic changes seen in the right CAUSTIC MIXER territory as described above. No signs of hemorrhagic transformation. This exam was performed as part of a code stroke protocol. The exam was completed on 08/28/2019 2:16 PM. The exam was reviewed at 2:[address] Fernandez was notified at 2:30 PM. 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 * Neck CTA IMPRESSION: Atheromatous plaque in the left common carotid bifurcation with the 30% narrowing (1) Acute CVA (cerebrovascular accident) Current Visit: Yes Status: Acute Plan to address problem: Patient has completed stroke in the right CAUSTIC MIXER territory Not a candidate for TPA Aspirin and Plavix initiated Stroke work-up including MRI, carotid Doppler scan and echocardiogram ordered No MRI because CTA of the head and CT of the neck were already done CT of the head showing right vertebral artery occlusion (2) Hypertension Current Visit: Yes Status: Chronic Qualifiers: Hypertension type: essential hypertension Qualified Code(s): I10 - Essential (primary) hypertension Plan to address problem: Continue antihypertensives (3) Hypertensive emergency Current Visit: Yes Status: Acute Plan to address problem: Patient's blood pressure has been very high 225/112 Weaned off Cardene drip (4) Noncompliance Current Visit: Yes Status: Acute Plan to address problem: Patient counseled about compliance and the ill effects of high blood pressure--especially uncontrolled (5) DVT prophylaxis Current Visit: Yes Status: Acute Plan to address problem: On heparin and GI prophylaxis History Interval history: Patient was seen and examined. Follow-up on current diagnosis of CVA. Overnight uneventful as no events directly reported to me. Patient denies any chest pain, shortness breath, nausea/vomiting or severe headaches. Imaging, nursing note, chart, labs and old chart reviewed. Discussed with patient. Hospitalist Physical - Physical exam Narrative exam: Gen: morbid obese, unkempt hair, bmi 45.2, ill appearing NAD, Awake, Alert, Orientated HEENT: NCAT, EOMI, PERRL, OP Clear Neck: supple, no adenopathy, no thyromegaly, no JVD CVS/Heart: RRR, normal S1S2, pulses present bilaterally Chest/Lungs: CTA B, Symmetrical chest expansion, good air entry bilaterally GI/Abdomen: soft, NTND, good bowel sounds, no guarding or rebound /Bladder: no suprapubic tenderness, no CVA or paraspinal tenderness Extermity/Skin: no c/c/e, no obvious rash MSK: FROM x 4 Neuro: CN 2-12 grossly intact except left hemianopsia, no new deficits Psych: calm - Constitutional Vitals: Temp Pulse Resp BP Pulse Ox 98 F 54 L 18 137/70 94 08/29/19 12:50 08/29/19 12:50 08/29/19 12:50 08/29/19 12:50 08/29/19 08:36 General appearance: Present: no acute distress, well-nourished Results - Labs CBC & Chem 7: 08/29/19 00:17 08/29/19 00:17 Labs: Laboratory Last Values WBC 9.5 K/mm3 (4.5-11.0) 08/29/19 00:17 RBC 4.73 M/mm3 (3.65-5.03) 08/29/19 00:17 Hgb 13.5 gm/dl (10.1-14.3) 08/29/19 00:17 Hct 40.3 % (30.3-42.9) D 08/29/19 00:17 MCV 85 fl (79-97) 08/29/19 00:17 MCH 29 pg (28-32) 08/29/19 00:17 MCHC 34 % (30-34) 08/29/19 00:17 RDW 14.4 % (13.2-15.2) 08/29/19 00:17 Plt Count 233 K/mm3 (140-440) 08/29/19 00:17 Lymph % (Auto) 26.1 % (13.4-35.0) 08/29/19 00:17 [place] % (Auto) 9.4 % (0.0-7.3) H 08/29/19 00:17 Eos % (Auto) 1.8 % (0.0-4.3) 08/29/19 00:17 Baso % (Auto) 0.6 % (0.0-1.8) 08/29/19 00:17 Lymph # 2.5 K/mm3 (1.2-5.4) 08/29/19 00:17 [place] # 0.9 K/mm3 (0.0-0.8) H 08/29/19 00:17 Eos # 0.2 K/mm3 (0.0-0.4) 08/29/19 00:17 Baso # 0.1 K/mm3 (0.0-0.1) 08/29/19 00:17 Seg Neutrophils % 62.1 % (40.0-70.0) 08/29/19 00:17 Seg Neutrophils # 5.9 K/mm3 (1.8-7.7) 08/29/19 00:17 PT 12.7 Sec. (12.2-14.9) 08/28/19 14:44 INR 0.94 (0.87-1.13) 08/28/19 14:44 APTT 25.8 Sec. (24.2-36.6) 08/28/19 14:44 Thrombin Time 16.5 Sec. (15.1-19.6) 08/28/19 14:44 Sodium 141 mmol/L (137-145) 08/29/19 00:17 Potassium 4.0 mmol/L (3.6-5.0) 08/29/19 00:17 Chloride 103.1 mmol/L (98-107) 08/29/19 00:17 Carbon Dioxide 25 mmol/L (22-30) 08/29/19 00:17 Anion Gap 17 mmol/L 08/29/19 00:17 BUN 19 mg/dL (7-17) H 08/29/19 00:17 Creatinine 1.1 mg/dL (0.7-1.2) 08/29/19 00:17 Estimated GFR > 60 ml/min 08/29/19 00:17 BUN/Creatinine Ratio 17 % 08/29/19 00:17 Glucose 110 mg/dL (65-100) H 08/29/19 00:17 Hemoglobin A1c 4.9 % (4-6) 08/29/19 00:17 Calcium 9.2 mg/dL (8.4-10.2) 08/29/19 00:17 Total Bilirubin 0.40 mg/dL (0.1-1.2) 08/29/19 00:17 AST 24 units/L (5-40) 08/29/19 00:17 ALT 27 units/L (7-56) 08/29/19 00:17 Alkaline Phosphatase 53 units/L (35-129) 08/29/19 00:17 Troponin T < 0.010 ng/mL (0.00-0.029) 08/28/19 14:44 Total Protein 7.3 g/dL (6.3-8.2) 08/29/19 00:17 Albumin 3.9 g/dL (3.9-5) 08/29/19 00:17 Albumin/Globulin Ratio 1.1 % 08/29/19 00:17 Triglycerides 117 mg/dL (2-149) 08/29/19 00:17 Cholesterol 153 mg/dL (50-199) 08/29/19 00:17 LDL Cholesterol Direct 77 mg/dL (50-130) 08/29/19 00:17 HDL Cholesterol 62 mg/dL (40-59) H 08/29/19 00:17 Cholesterol/HDL Ratio 2.46 % 08/29/19 00:17 Active Medications - Current Medications Current Medications: Generic Name Dose Route Start Last Admin Trade Name Freq PRN Reason Stop Dose Admin Acetaminophen 650 mg 08/28/19 23:30 Tylenol PO Q4H PRN Pain MILD(1-3)/Fever >100.5/GARCÍA Amlodipine Besylate 10 mg 08/29/19 10:00 08/29/19 10:21 Amlodipine PO 10 mg DAILY JACQUELINE Administration Aspirin 325 mg 08/29/19 10:00 08/29/19 10:22 Aspirin PO 325 mg QDAY JACQUELINE Administration Atorvastatin Calcium 80 mg 08/29/19 22:00 Lipitor PO QHS JACQUELINE Clopidogrel Bisulfate 75 mg 08/28/19 23:35 08/29/19 10:22 Plavix PO 75 mg QDAY JACQUELINE Administration Famotidine 20 mg 08/28/19 23:45 08/29/19 10:22 Pepcid PO 20 mg BID JACQUELINE Administration Hydromorphone HCl 0.5 mg 08/28/19 23:30 Dilaudid IV Q3H PRN Pain , Severe (7-10) Nicardipine HCl 50 mg/ Sodium 250 mls @ 25 mls/hr 08/28/19 19:00 08/29/19 10:16 Chloride IV Infused TITR JACQUELINE Titration Protocol 5 MG/HR Ondansetron HCl 4 mg 08/28/19 23:30 Zofran IV Q8H PRN Nausea And Vomiting Oxycodone/Acetaminophen 1 tab 08/28/19 23:30 08/29/19 10:04 Percocet 5/325 PO 1 tab Q6H PRN Administration Pain, Moderate (4-6) Sodium Chloride 10 ml 08/29/19 10:00 08/29/19 10:17 Sodium Chloride Flush Syringe 10 Ml IV 10 ml BID JACQUELINE Administration Sodium Chloride 10 ml 08/28/19 23:30 Sodium Chloride Flush Syringe 10 Ml IV PRN PRN LINE FLUSH
--- NOTE | 2019-08-29 15:05 | Magnetic Resonance Report ---
MRI BRAIN WITHOUT CONTRAST INDICATION / CLINICAL INFORMATION: stroke. TECHNIQUE: Multiplanar, multisequence MR images of the brain were obtained. COMPARISON: Head CT 08/28/2019 and 08/14/2017 FINDINGS: BRAIN / INTRACRANIAL CONTENTS: This study confirms the presence of a subacute right posterior cerebral artery infarction involving p ortions of the medial temporal lobe, medial occipital lobe, splenium of the corpus callosum to the ri ght of the midline and posterior right thalamus. This infarction encompasses most of the right extrusion die template maker ior cerebral artery distribution. Restricted diffusion is observed in this distribution. Decreased si gnal intensity is seen on ADC map imaging. Hyperintensities observed in the same distribution on FLAI R and T2-weighted scans. There is no indication of hemorrhagic transformation. Ventricles and cortical sulci are normal in size and configuration. There is no mass effect. No evide nce of intracranial hemorrhage or extra-axial fluid collection is seen. No areas of abnormal brain pa renchymal signal intensity are identified. There is no indication of remote cortical infarction. Diff usion weighted scans are negative. The brainstem and cerebellum have an unremarkable appearance. CRANIOCERVICAL JUNCTION: No abnormalities are identified at the craniocervical junction. VASCULAR FLOW-VOIDS: Normal flow-voids are present within the major intracranial vessels. ORBITS: The orbits have an unremarkable appearance. SINUSES / MASTOIDS: There is no indication of inflammatory disease in the paranasal sinuses or mastoi d air cells. ADDITIONAL FINDINGS: None. IMPRESSION: 1. This study confirms the presence of a large subacute right posterior cerebral artery infarction as described above. Signer Name: Geoffrey Leary MD Signed: 08/29/2019 3:01 PM Workstation Name: [id number]
[2019-08-29] MEDS ORDERED: hydrALAZINE 20 MG/1 ML INJ IV PRN (16:36)
[2019-08-29] MEDS: NICOTINE 14 MG/24 HR PATCH TD SCH (22:20)
[2019-08-30] MEDS: ACETAMINOPHEN 325 MG TAB PO PRN ×2 (08:03→18:33)
[2019-08-30] MEDS: oxyCODONE /ACETAMINOPHEN 5-325MG TAB PO PRN (09:54)
[2019-08-30] MEDS: CLOPIDOGREL 75 MG TAB PO SCH (09:56)
[2019-08-30] MEDS: FAMOTIDINE 20 MG TAB PO SCH ×2 (09:56→21:57)
[2019-08-30] MEDS: ASPIRIN 325 MG TAB PO SCH (09:56)
--- NOTE | 2019-08-30 11:38 | Progress Note ---
Assessment and Plan Assessment and plan: Patient is a 64 yo woman with a history of hypertension and tobacco dependency who presents to [facility] ED with left sided weakness, headaches, nausea, difficulty walking and vision disturbances. 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 * Head CT IMPRESSION: 1. Ischemic changes seen in the right CODER OPERATOR territory as described above. No signs of hemorrhagic transformation. This exam was performed as part of a code stroke protocol. The exam was completed on 08/28/2019 2:16 PM. The exam was reviewed at 2:[address] Fernandez was notified at 2:30 PM. 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 * Neck CTA IMPRESSION: Atheromatous plaque in the left common carotid bifurcation with the 30% narrowing (1) Acute CVA (cerebrovascular accident) Current Visit: Yes Status: Acute Plan to address problem: Patient has completed stroke in the right CODER OPERATOR territory Not a candidate for TPA Aspirin and Plavix initiated Stroke work-up including MRI, carotid Doppler scan and echocardiogram ordered No MRI because CTA of the head and CT of the neck were already done CT of the head showing right vertebral artery occlusion (2) Hypertension Current Visit: Yes Status: Chronic Qualifiers: Hypertension type: essential hypertension Qualified Code(s): I10 - Essential (primary) hypertension Plan to address problem: Continue antihypertensives (3) Hypertensive emergency Current Visit: Yes Status: Acute Plan to address problem: Patient's blood pressure has been very high 225/112 Weaned off Cardene drip (4) Noncompliance Current Visit: Yes Status: Acute Plan to address problem: Patient counseled about compliance and the ill effects of high blood pressure--especially uncontrolled (5) DVT prophylaxis Current Visit: Yes Status: Acute Plan to address problem: On heparin and GI prophylaxis History Interval history: Patient was seen and examined. Follow-up on current diagnosis of CVA. Overnight uneventful as no events directly reported to me. Patient denies any chest pain, shortness breath, nausea/vomiting or severe headaches. Imaging, nursing note, chart, labs and old chart reviewed. Discussed with patient. Hospitalist Physical - Physical exam Narrative exam: Gen: morbid obese, unkempt hair, bmi 45.2, ill appearing NAD, Awake, Alert, Orientated HEENT: NCAT, EOMI, PERRL, OP Clear Neck: supple, no adenopathy, no thyromegaly, no JVD CVS/Heart: RRR, normal S1S2, pulses present bilaterally Chest/Lungs: CTA B, Symmetrical chest expansion, good air entry bilaterally GI/Abdomen: soft, NTND, good bowel sounds, no guarding or rebound /Bladder: no suprapubic tenderness, no CVA or paraspinal tenderness Extermity/Skin: no c/c/e, no obvious rash MSK: FROM x 4 Neuro: CN 2-12 grossly intact except left hemianopsia, no new deficits Psych: calm - Constitutional Vitals: Temp Pulse Resp BP Pulse Ox 98.5 F 59 L 18 229/120 94 08/30/19 07:24 08/30/19 05:15 08/30/19 07:24 08/30/19 07:24 08/30/19 09:31 General appearance: Present: no acute distress, well-nourished Results - Labs CBC & Chem 7: 08/29/19 00:17 08/29/19 00:17 Labs: Laboratory Last Values WBC 9.5 K/mm3 (4.5-11.0) 08/29/19 00:17 RBC 4.73 M/mm3 (3.65-5.03) 08/29/19 00:17 Hgb 13.5 gm/dl (10.1-14.3) 08/29/19 00:17 Hct 40.3 % (30.3-42.9) D 08/29/19 00:17 MCV 85 fl (79-97) 08/29/19 00:17 MCH 29 pg (28-32) 08/29/19 00:17 MCHC 34 % (30-34) 08/29/19 00:17 RDW 14.4 % (13.2-15.2) 08/29/19 00:17 Plt Count 233 K/mm3 (140-440) 08/29/19 00:17 Lymph % (Auto) 26.1 % (13.4-35.0) 08/29/19 00:17 [place] % (Auto) 9.4 % (0.0-7.3) H 08/29/19 00:17 Eos % (Auto) 1.8 % (0.0-4.3) 08/29/19 00:17 Baso % (Auto) 0.6 % (0.0-1.8) 08/29/19 00:17 Lymph # 2.5 K/mm3 (1.2-5.4) 08/29/19 00:17 [place] # 0.9 K/mm3 (0.0-0.8) H 08/29/19 00:17 Eos # 0.2 K/mm3 (0.0-0.4) 08/29/19 00:17 Baso # 0.1 K/mm3 (0.0-0.1) 08/29/19 00:17 Seg Neutrophils % 62.1 % (40.0-70.0) 08/29/19 00:17 Seg Neutrophils # 5.9 K/mm3 (1.8-7.7) 08/29/19 00:17 PT 12.7 Sec. (12.2-14.9) 08/28/19 14:44 INR 0.94 (0.87-1.13) 08/28/19 14:44 APTT 25.8 Sec. (24.2-36.6) 08/28/19 14:44 Thrombin Time 16.5 Sec. (15.1-19.6) 08/28/19 14:44 Sodium 141 mmol/L (137-145) 08/29/19 00:17 Potassium 4.0 mmol/L (3.6-5.0) 08/29/19 00:17 Chloride 103.1 mmol/L (98-107) 08/29/19 00:17 Carbon Dioxide 25 mmol/L (22-30) 08/29/19 00:17 Anion Gap 17 mmol/L 08/29/19 00:17 BUN 19 mg/dL (7-17) H 08/29/19 00:17 Creatinine 1.1 mg/dL (0.7-1.2) 08/29/19 00:17 Estimated GFR > 60 ml/min 08/29/19 00:17 BUN/Creatinine Ratio 17 % 08/29/19 00:17 Glucose 110 mg/dL (65-100) H 08/29/19 00:17 POC Glucose 128 (70-105) H 08/29/19 16:22 Hemoglobin A1c 4.9 % (4-6) 08/29/19 00:17 Calcium 9.2 mg/dL (8.4-10.2) 08/29/19 00:17 Total Bilirubin 0.40 mg/dL (0.1-1.2) 08/29/19 00:17 AST 24 units/L (5-40) 08/29/19 00:17 ALT 27 units/L (7-56) 08/29/19 00:17 Alkaline Phosphatase 53 units/L (35-129) 08/29/19 00:17 Troponin T < 0.010 ng/mL (0.00-0.029) 08/28/19 14:44 Total Protein 7.3 g/dL (6.3-8.2) 08/29/19 00:17 Albumin 3.9 g/dL (3.9-5) 08/29/19 00:17 Albumin/Globulin Ratio 1.1 % 08/29/19 00:17 Triglycerides 117 mg/dL (2-149) 08/29/19 00:17 Cholesterol 153 mg/dL (50-199) 08/29/19 00:17 LDL Cholesterol Direct 77 mg/dL (50-130) 08/29/19 00:17 HDL Cholesterol 62 mg/dL (40-59) H 08/29/19 00:17 Cholesterol/HDL Ratio 2.46 % 08/29/19 00:17 Active Medications - Current Medications Current Medications: Generic Name Dose Route Start Last Admin Trade Name Freq PRN Reason Stop Dose Admin Acetaminophen 650 mg 08/28/19 23:30 08/30/19 08:03 Tylenol PO 650 mg Q4H PRN Administration Pain MILD(1-3)/Fever >100.5/GARCÍA Aspirin 325 mg 08/29/19 10:00 08/30/19 09:56 Aspirin PO 325 mg QDAY JACQUELINE Administration Atorvastatin Calcium 80 mg 08/29/19 22:00 08/29/19 22:21 Lipitor PO 80 mg QHS JACQUELINE Administration Clopidogrel Bisulfate 75 mg 08/28/19 23:35 08/30/19 09:56 Plavix PO 75 mg QDAY JACQUELINE Administration Famotidine 20 mg 08/28/19 23:45 08/30/19 09:56 Pepcid PO 20 mg BID JACQUELINE Administration Hydralazine HCl 10 mg 08/29/19 16:36 Apresoline IV Q4H PRN Blood Pressure Hydromorphone HCl 0.5 mg 08/28/19 23:30 Dilaudid IV Q3H PRN Pain , Severe (7-10) Nicotine 14 mg 08/29/19 22:00 08/29/19 22:20 Habitrol TD 14 mg QDAY@2200 JACQUELINE Administration Ondansetron HCl 4 mg 08/28/19 23:30 Zofran IV Q8H PRN Nausea And Vomiting Oxycodone/Acetaminophen 1 tab 08/28/19 23:30 08/30/19 09:54 Percocet 5/325 PO 1 tab Q6H PRN Administration Pain, Moderate (4-6) Sodium Chloride 10 ml 08/29/19 10:00 08/30/19 10:06 Sodium Chloride Flush Syringe 10 Ml IV 10 ml BID JACQUELINE Administration Sodium Chloride 10 ml 08/28/19 23:30 Sodium Chloride Flush Syringe 10 Ml IV PRN PRN LINE FLUSH
[2019-08-30] MEDS: NICOTINE 14 MG/24 HR PATCH TD SCH (21:57)
[2019-08-31] MEDS: oxyCODONE /ACETAMINOPHEN 5-325MG TAB PO PRN (02:05)
[2019-08-31] MEDS: ACETAMINOPHEN 325 MG TAB PO PRN ×3 (04:24→15:43)
[2019-08-31] MEDS: FAMOTIDINE 20 MG TAB PO SCH ×2 (09:43→22:04)
[2019-08-31] MEDS: CLOPIDOGREL 75 MG TAB PO SCH (09:44)
[2019-08-31] MEDS: amLODIPine 10 MG TAB PO SCH (09:44)
[2019-08-31] MEDS: ASPIRIN 325 MG TAB PO SCH (09:44)
--- NOTE | 2019-08-31 11:58 | Progress Note ---
Assessment and Plan Assessment and plan: Patient is a 64 yo woman with a history of hypertension and tobacco dependency who presents to [facility] ED with left sided weakness, headaches, nausea, difficulty walking and vision disturbances. 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 * Head CT IMPRESSION: 1. Ischemic changes seen in the right NUT THREADER territory as described above. No signs of hemorrhagic transformation. This exam was performed as part of a code stroke protocol. The exam was completed on 08/28/2019 2:16 PM. The exam was reviewed at 2:[address] Fernandez was notified at 2:30 PM. 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 Current Visit: Yes Status: Acute Plan to address problem: Patient has completed stroke in the right NUT THREADER territory Not a candidate for TPA Aspirin and Plavix initiated Stroke work-up including MRI, carotid Doppler scan and echocardiogram ordered No MRI because CTA of the head and CT of the neck were already done CT of the head showing right vertebral artery occlusion (2) Hypertension Current Visit: Yes Status: Chronic Qualifiers: Hypertension type: essential hypertension Qualified Code(s): I10 - Essential (primary) hypertension Plan to address problem: Continue antihypertensives (3) Hypertensive emergency Current Visit: Yes Status: Acute Plan to address problem: Patient's blood pressure has been very high 225/112 Weaned off Cardene drip (4) Noncompliance Current Visit: Yes Status: Acute Plan to address problem: Patient counseled about compliance and the ill effects of high blood pressure--especially uncontrolled (5) DVT prophylaxis Current Visit: Yes Status: Acute Plan to address problem: On heparin and GI prophylaxis d/w daughter Kristal at bedside, I have also spoken with son ELIO and Askew. Disposition: continue inpatient care, d/c Home with [facility] PT/OT, once bp stablizes. PT recommended inpatient rehab but patient doesn't have insurance. Blanca Levi, IRU/director of quantitative research is [facility] Case management helping with disable form. Anticipate d/c tomorrow if bp stable, added Norvasc today History Interval history: Patient was seen and examined. Follow-up on current diagnosis of CVA. Overnight uneventful as no events directly reported to me. Patient denies any chest pain, shortness breath, nausea/vomiting or severe headaches. Imaging, nursing note, chart, labs and old chart reviewed. Discussed with patient. Hospitalist Physical - Physical exam Narrative exam: Gen: morbid obese, unkempt hair, bmi 45.2, ill appearing NAD, Awake, Alert, Orientated HEENT: NCAT, EOMI, PERRL, OP Clear Neck: supple, no adenopathy, no thyromegaly, no JVD CVS/Heart: RRR, normal S1S2, pulses present bilaterally Chest/Lungs: CTA B, Symmetrical chest expansion, good air entry bilaterally GI/Abdomen: soft, NTND, good bowel sounds, no guarding or rebound /Bladder: no suprapubic tenderness, no CVA or paraspinal tenderness Extermity/Skin: no c/c/e, no obvious rash MSK: FROM x 4 Neuro: CN 2-12 grossly intact except left hemianopsia, no new deficits Psych: calm - Constitutional Vitals: Temp Pulse Resp BP Pulse Ox 98.5 F 59 L 20 187/97 97 08/31/19 07:51 08/31/19 09:44 08/31/19 07:51 08/31/19 07:51 08/31/19 08:17 General appearance: Present: no acute distress, well-nourished Results - Labs CBC & Chem 7: 08/29/19 00:17 08/29/19 00:17 Labs: Laboratory Last Values WBC 9.5 K/mm3 (4.5-11.0) 08/29/19 00:17 RBC 4.73 M/mm3 (3.65-5.03) 08/29/19 00:17 Hgb 13.5 gm/dl (10.1-14.3) 08/29/19 00:17 Hct 40.3 % (30.3-42.9) D 08/29/19 00:17 MCV 85 fl (79-97) 08/29/19 00:17 MCH 29 pg (28-32) 08/29/19 00:17 MCHC 34 % (30-34) 08/29/19 00:17 RDW 14.4 % (13.2-15.2) 08/29/19 00:17 Plt Count 233 K/mm3 (140-440) 08/29/19 00:17 Lymph % (Auto) 26.1 % (13.4-35.0) 08/29/19 00:17 [place] % (Auto) 9.4 % (0.0-7.3) H 08/29/19 00:17 Eos % (Auto) 1.8 % (0.0-4.3) 08/29/19 00:17 Baso % (Auto) 0.6 % (0.0-1.8) 08/29/19 00:17 Lymph # 2.5 K/mm3 (1.2-5.4) 08/29/19 00:17 [place] # 0.9 K/mm3 (0.0-0.8) H 08/29/19 00:17 Eos # 0.2 K/mm3 (0.0-0.4) 08/29/19 00:17 Baso # 0.1 K/mm3 (0.0-0.1) 08/29/19 00:17 Seg Neutrophils % 62.1 % (40.0-70.0) 08/29/19 00:17 Seg Neutrophils # 5.9 K/mm3 (1.8-7.7) 08/29/19 00:17 PT 12.7 Sec. (12.2-14.9) 08/28/19 14:44 INR 0.94 (0.87-1.13) 08/28/19 14:44 APTT 25.8 Sec. (24.2-36.6) 08/28/19 14:44 Thrombin Time 16.5 Sec. (15.1-19.6) 08/28/19 14:44 Sodium 141 mmol/L (137-145) 08/29/19 00:17 Potassium 4.0 mmol/L (3.6-5.0) 08/29/19 00:17 Chloride 103.1 mmol/L (98-107) 08/29/19 00:17 Carbon Dioxide 25 mmol/L (22-30) 08/29/19 00:17 Anion Gap 17 mmol/L 08/29/19 00:17 BUN 19 mg/dL (7-17) H 08/29/19 00:17 Creatinine 1.1 mg/dL (0.7-1.2) 08/29/19 00:17 Estimated GFR > 60 ml/min 08/29/19 00:17 BUN/Creatinine Ratio 17 % 08/29/19 00:17 Glucose 110 mg/dL (65-100) H 08/29/19 00:17 POC Glucose 83 (70-105) 08/31/19 08:02 Hemoglobin A1c 4.9 % (4-6) 08/29/19 00:17 Calcium 9.2 mg/dL (8.4-10.2) 08/29/19 00:17 Total Bilirubin 0.40 mg/dL (0.1-1.2) 08/29/19 00:17 AST 24 units/L (5-40) 08/29/19 00:17 ALT 27 units/L (7-56) 08/29/19 00:17 Alkaline Phosphatase 53 units/L (35-129) 08/29/19 00:17 Troponin T < 0.010 ng/mL (0.00-0.029) 08/28/19 14:44 Total Protein 7.3 g/dL (6.3-8.2) 08/29/19 00:17 Albumin 3.9 g/dL (3.9-5) 08/29/19 00:17 Albumin/Globulin Ratio 1.1 % 08/29/19 00:17 Triglycerides 117 mg/dL (2-149) 08/29/19 00:17 Cholesterol 153 mg/dL (50-199) 08/29/19 00:17 LDL Cholesterol Direct 77 mg/dL (50-130) 08/29/19 00:17 HDL Cholesterol 62 mg/dL (40-59) H 08/29/19 00:17 Cholesterol/HDL Ratio 2.46 % 08/29/19 00:17 Active Medications - Current Medications Current Medications: Generic Name Dose Route Start Last Admin Trade Name Freq PRN Reason Stop Dose Admin Acetaminophen 650 mg 08/28/19 23:30 08/31/19 09:42 Tylenol PO 650 mg Q4H PRN Administration Pain MILD(1-3)/Fever >100.5/GARCÍA Amlodipine Besylate 10 mg 08/31/19 10:00 08/31/19 09:44 Amlodipine PO 10 mg QDAY JACQUELINE Administration Aspirin 325 mg 08/29/19 10:00 08/31/19 09:44 Aspirin PO 325 mg QDAY JACQUELINE Administration Atorvastatin Calcium 80 mg 08/29/19 22:00 08/30/19 21:56 Lipitor PO 80 mg QHS JACQUELINE Administration Clopidogrel Bisulfate 75 mg 08/28/19 23:35 08/31/19 09:44 Plavix PO 75 mg QDAY JACQUELINE Administration Famotidine 20 mg 08/28/19 23:45 08/31/19 09:43 Pepcid PO 20 mg BID JACQUELINE Administration Hydralazine HCl 10 mg 08/29/19 16:36 08/30/19 14:27 Apresoline IV 10 mg Q4H PRN Administration Blood Pressure Hydromorphone HCl 0.5 mg 08/28/19 23:30 Dilaudid IV Q3H PRN Pain , Severe (7-10) Nicotine 14 mg 08/29/19 22:00 08/30/19 21:57 Habitrol TD 14 mg QDAY@2200 JACQUELINE Administration Ondansetron HCl 4 mg 08/28/19 23:30 08/30/19 12:32 Zofran IV 4 mg Q8H PRN Administration Nausea And Vomiting Oxycodone/Acetaminophen 1 tab 08/28/19 23:30 08/31/19 02:05 Percocet 5/325 PO 1 tab Q6H PRN Administration Pain, Moderate (4-6) Sodium Chloride 10 ml 08/29/19 10:00 08/31/19 09:51 Sodium Chloride Flush Syringe 10 Ml IV 10 ml BID JACQUELINE Administration Sodium Chloride 10 ml 08/28/19 23:30 Sodium Chloride Flush Syringe 10 Ml IV PRN PRN LINE FLUSH
--- NOTE | 2019-08-31 13:39 | Vascular Lab Report ---
BILATERAL CAROTID DOPPLER ULTRASOUND INDICATION : stroke TECHNIQUE: Grayscale and color Doppler imaging performed through the neck. COMPARISON: None FINDINGS: Right: There is minimal partially calcified plaques in the carotid bulb. Peak systolic velocity in the CCA is 78 cm/s with end-diastolic velocity of 14 cm/s. Peak systolic velocity in the proximal ICA is 52 cm/s with end-diastolic velocity of 14 cm/s. ICA to CCA ratio is less than 2. There is antegra de flow in the ECA and the vertebral artery. Left: There is minimal partially calcified plaques in the carotid bulb. Peak systolic velocity in the CCA is 72 cm/s with end-diastolic velocity of 15 cm/s. Peak systolic velocity in the proximal ICA is 84 cm/s with end-diastolic velocity of 23 cm/s. ICA to CCA ratio is less than 2. There is antegrade flow in the ECA and the vertebral artery. IMPRESSION: No hemodynamically significant stenosis by NASCET criteria. Signer Name: Bashir Bird Jr, MD Signed: 08/31/2019 1:35 PM Workstation Name: [id number]
--- NOTE | 2019-08-31 15:57 | Discharge Summary ---
Providers - Providers Date of Admission: 08/28/19 17:55 Date of discharge: 08/31/19 Attending physician: NEHA WASHINGTON 08/28/19 23:30 Consult to Physician [CONS] Routine Comment: Consulting Provider: MALLIKA YOUNG Physician Instructions: Reason For Exam: CVA 08/28/19 23:33 Occupational Therapy Evaluate and Treat [CONS] Routine Comment: Reason For Exam: Neuro deficits Physical Therapy Evaluation and Treat [CONS] Routine Comment: Reason For Exam: Neuro deficits 08/31/19 08:09 Speech Therapy Evaluation and Treat [CONS] Routine Reason For Exam: cva Primary care physician: BASIC COMBATANT SWIMMER Hospitalization Condition: Stable Hospital course: Patient is a 64 yo woman with a history of hypertension and tobacco dependency who presents to [facility] ED with left sided weakness, headaches, nausea, difficulty walking and vision disturbances. Patient was found to have right FUR CLIPPER stroke on CT head and No tPA given because last well known time >4.5 hours. * Head CT IMPRESSION: 1. Ischemic changes seen in the right FUR CLIPPER territory as described above. No signs of hemorrhagic transformation. This exam was performed as part of a code stroke protocol. The exam was completed on 08/28/2019 2:16 PM. The exam was reviewed at 2:[address] Fernandez was notified at 2:30 PM. 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 Current Visit: Yes Status: Acute Plan to address problem: Patient has completed stroke in the right FUR CLIPPER territory Not a candidate for TPA Aspirin and Plavix initiated Stroke work-up including MRI, carotid Doppler scan and echocardiogram ordered No MRI because CTA of the head and CT of the neck were already done CT of the head showing right vertebral artery occlusion (2) Hypertension Current Visit: Yes Status: Chronic Qualifiers: Hypertension type: essential hypertension Qualified Code(s): I10 - Essential (primary) hypertension Plan to address problem: Continue antihypertensives (3) Hypertensive emergency Current Visit: Yes Status: Acute Plan to address problem: Patient's blood pressure has been very high 225/112 Weaned off Cardene drip (4) Noncompliance Current Visit: Yes Status: Acute Plan to address problem: Patient counseled about compliance and the ill effects of high blood pressure--especially uncontrolled (5) DVT prophylaxis Current Visit: Yes Status: Acute Plan to address problem: On heparin and GI prophylaxis d/w daughter Kristal at bedside, I have also spoken with son ELIO and Askew. Disposition: continue inpatient care, d/c Home with [facility] PT/OT Disposition: DC/TX-06 HOME UNDER HOME [facility] Time spent for discharge: 35 minutes Core Measure Documentation - Palliative Care Palliative Care/ Comfort Measures: Not Applicable - Core Measures Any of the following diagnoses?: stroke - VTE Discharge Requirements Deep Vein Thrombosis/Pulmonary Embolism Present on Admission: No Has pt received <5 days of overlap therapy or INR<2.0: No Anticoagulant overlap therapy prescribed at discharge: No Contraindication No Overlap Therapy order at DC: Not Indicated - Stroke Discharge Requirements Statin for LDL = or >70 mg/dl on DC: Yes Anticoag for atrial fib/atrial flutter: No Reason for no anticoag for AF/F on DC: Not Indicated Antithrombotic for ischemic stroke: Yes Exam - Physical Exam Narrative exam: Gen: morbid obese, unkempt hair, bmi 45.2, ill appearing NAD, Awake, Alert, Orientated HEENT: NCAT, EOMI, PERRL, OP Clear Neck: supple, no adenopathy, no thyromegaly, no JVD CVS/Heart: RRR, normal S1S2, pulses present bilaterally Chest/Lungs: CTA B, Symmetrical chest expansion, good air entry bilaterally GI/Abdomen: soft, NTND, good bowel sounds, no guarding or rebound /Bladder: no suprapubic tenderness, no CVA or paraspinal tenderness Extermity/Skin: no c/c/e, no obvious rash MSK: FROM x 4 Neuro: CN 2-12 grossly intact except left hemianopsia, no new deficits Psych: calm - Constitutional Vitals: Temp Pulse Resp BP Pulse Ox 98.5 F 63 20 147/79 96 08/31/19 12:13 08/31/19 12:13 08/31/19 12:13 08/31/19 12:13 08/31/19 12:13 Plan Activity: no driving until cleared by PCP (new strenous activity ), other Diet: low salt Special Instructions: physical therapy Follow up with: MALLIKA YOUNG MD [Staff Physician] - 7 Days RAUL STUBBS MD [Staff Physician] - 7 Days [facility] [Provider Group] - 7 Days Forms: Accompanied Note Prescriptions: AtorvaSTATin [Lipitor] 1 tab PO QHS #30 tablet Aspirin [Adult Aspirin] 81 mg PO QDAY #30 tablet. amLODIPine 10 mg PO QDAY #30 tablet Nicotine [Habitrol] 14 mg TD QDAY@2200 #7 patch oxyCODONE /ACETAMINOPHEN [Percocet 5/325 mg] 1 tab PO Q6H PRN #12 tablet PRN Reason: Pain , Severe (7-10) Clopidogrel [Plavix] 75 mg PO QDAY #30 tablet
--- NOTE | 2019-08-31 21:56 | Cat Scan Report ---
NONENHANCED CT SCAN OF THE HEAD: INDICATION / CLINICAL INFORMATION: 64 years Female; fall, headaches, dizziness. TECHNIQUE: Routine CT head without contrast. All CT scans at this location are performed using CT dos e reduction for ALARA by means of automated exposure control. COMPARISON: CT scan from August 28, 2019 and MRI scan from August 29, 2019. FINDINGS: BRAIN / INTRACRANIAL CONTENTS: Recently seen subacute infarction in the right posterior cerebral rod ry territory has not progressed. No CT findings to suggest hemorrhagic changes. Compared to the previ ous CT scan from August 28, mass effect over the right occipital horn and atrium of the right latera l ventricle has increased. Lacunae are seen in both thalami. CRANIOCERVICAL JUNCTION: No significant abnormality. ORBITS: No significant abnormality of visualized orbits. SINUSES / MASTOIDS: No significant abnormality of the visualized paranasal sinuses or mastoid air sulaiman ls. ADDITIONAL FINDINGS: None. IMPRESSION: Recently seen right posterior cerebral artery territory infarction has not progressed.; No hemorrhag ic changes.Compared to the CT scan from 3 days ago, mass effect over the right occipital horn and atr ium of the right lateral ventricle has increased. Signer Name: Guerita Mcghee MD Signed: 08/31/2019 9:51 PM Workstation Name: [id number]
[2019-08-31] MEDS: NICOTINE 14 MG/24 HR PATCH TD SCH (22:02)
[2019-09-01] MEDS: oxyCODONE /ACETAMINOPHEN 5-325MG TAB PO PRN (03:49)
[2019-09-01 07:31] VITALS: BP 137/58
--- NOTE | 2019-09-01 09:38 | Consultation ---
History of Present Illness Consult date: 09/01/19 Reason for Consult: Abnormal Ct brain History of present illness: Patient is a 64 yo woman with a history of hypertension and tobacco dependency who presents to [facility] ED with left sided weakness, headaches, nausea, difficulty walking and vision disturbances. Patient was found to have right FISCAL TECHNICIAN stroke on CT head and No tPA given because last well known time >4.5 hours. * Head CT IMPRESSION: 1. Ischemic changes seen in the right FISCAL TECHNICIAN territory as described above. No signs of hemorrhagic transformation. This exam was performed as part of a code stroke protocol. The exam was completed on 08/28/2019 2:16 PM. The exam was reviewed at 2:[address] Fernandez was notified at 2:[address] brain 08/31 showed same finding with silight increase edema noted in right FISCAL TECHNICIAN distribution with no sign of shift or hydrocephalus. 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 * Neck CTA IMPRESSION: Atheromatous plaque in the left common carotid bifurcation with the 30% narrowing with complete occlusion R.ICA Interval history: Patient was seen and examined. Follow-up on current diagnosis of CVA. she is instructed not to drive due to visual defect , no alcohol , no smoking and complying with her medications and follow up with PCP. Past History Past Medical History: hypertension, hyperlipidemia Social history: smoking, alcohol abuse Medications and Allergies Allergies Allergy/AdvReac Type Severity Reaction Status Date / Time No Known Allergies Allergy Verified 08/28/19 13:44 Home Medications Medication Instructions Recorded Confirmed Last Taken Type Acetaminophen [Acetaminophen TAB] 2 tab PO Q4H PRN #16 tablet 08/31/19 Unknown Rx Aspirin [Adult Aspirin] 81 mg PO QDAY #30 tablet. 08/31/19 Unknown Rx AtorvaSTATin [Lipitor] 1 tab PO QHS #30 tablet 08/31/19 Unknown Rx Clopidogrel [Plavix] 75 mg PO QDAY #30 tablet 08/31/19 Unknown Rx Nicotine [Habitrol] 14 mg TD QDAY@2200 #7 patch 08/31/19 Unknown Rx amLODIPine 10 mg PO QDAY #30 tablet 08/31/19 Unknown Rx oxyCODONE /ACETAMINOPHEN [Percocet 1 tab PO Q6H PRN #12 tablet 08/31/19 Unknown Rx 5/325 mg] Active Meds: Active Medications Acetaminophen (Tylenol) 650 mg PO Q4H PRN PRN Reason: Pain MILD(1-3)/Fever >100.5/GARCÍA Last Admin: 08/31/19 15:43 Dose: 650 mg Documented by: Amlodipine Besylate (Amlodipine) 10 mg PO QDAY [facility] Last Admin: 08/31/19 09:44 Dose: 10 mg Documented by: Aspirin (Aspirin) 325 mg PO QDAY [facility] Last Admin: 08/31/19 09:44 Dose: 325 mg Documented by: Atorvastatin Calcium (Lipitor) 80 mg PO QHS [facility] Last Admin: 08/31/19 22:02 Dose: 80 mg Documented by: Clopidogrel Bisulfate (Plavix) 75 mg PO QDAY [facility] Last Admin: 08/31/19 09:44 Dose: 75 mg Documented by: Famotidine (Pepcid) 20 mg PO BID [facility] Last Admin: 08/31/19 22:04 Dose: 20 mg Documented by: Hydralazine HCl (Apresoline) 10 mg IV Q4H PRN PRN Reason: Blood Pressure Last Admin: 08/30/19 14:27 Dose: 10 mg Documented by: Hydromorphone HCl (Dilaudid) 0.5 mg IV Q3H PRN PRN Reason: Pain , Severe (7-10) Nicotine (Habitrol) 14 mg TD QDAY@2200 [facility] Last Admin: 08/31/19 22:02 Dose: 14 mg Documented by: Ondansetron HCl (Zofran) 4 mg IV Q8H PRN PRN Reason: Nausea And Vomiting Last Admin: 08/30/19 12:32 Dose: 4 mg Documented by: Oxycodone/Acetaminophen (Percocet 5/325) 1 tab PO Q6H PRN PRN Reason: Pain, Moderate (4-6) Last Admin: 09/01/19 03:49 Dose: 1 tab Documented by: Sodium Chloride (Sodium Chloride Flush Syringe 10 Ml) 10 ml IV BID [facility] Last Admin: 08/31/19 22:04 Dose: 10 ml Documented by: Sodium Chloride (Sodium Chloride Flush Syringe 10 Ml) 10 ml IV PRN PRN PRN Reason: LINE FLUSH Review of Systems All systems: negative Physical Examination - Vital Signs Vital Signs: Vital Signs Temp Pulse Resp BP Pulse Ox 98.2 F 65 14 250/112 98 08/28/19 13:11 08/28/19 13:11 08/28/19 13:11 08/28/19 13:11 08/28/19 13:11 - Constitutional General appearance: comfortable - EENT EENT: Present: PERRL, other (with slight limited right gaze and right hemianopsia) - Cardiovascular Cardiovascular: Present: regular rate, no murmurs Extremities: Present: no peripheral edema bilatateraly, no clubbing, cyanosis, no inflammation - Gastrointestinal Gastrointestinal: Present: normoactive bowel sounds - Integumentary Integumentary: Present: normal - Neurologic Cranial nerve examination: PERRL, EOMI (right hemianopsia ) Speech examination: intact Sensorimotor examination: intact (mild left pronator drift ) Reflexes: 1+: ankle, bicep, knee, tricep - Level of Consciousness 1a. Level of Consciousness: alert/keenly responsive - LOC Questions 1b. LOC Questions: answers both correctly - LOC Command 1c. LOC Commands: performs tasks correctly - Best Gaze 2. Best Gaze: partial gaze palsy - Visual 3. Visual: complete hemianopia - Facial Palsy 4. Facial Palsy: minor paralysis - Motor Arm 5a. Motor Arm Left: drift - Motor Leg 6a. Motor Leg Left: no drift 6b. Motor Leg Right: no drift - Limb Ataxia 7. Limb Ataxia: absent - Sensory 8. Sensory: normal - Best Language 9. Best Language: no aphasia - Dysarthria 10. Dysarthria: normal - Extinction and Inattention 11. Extinction/Inattention: no abnormality Results - Laboratory Findings CBC and BMP: 08/29/19 00:17 08/29/19 00:17 Abnormal Lab Findings: Abnormal Labs 08/28/19 08/28/19 08/29/19 14:44 14:44 00:17 RBC 5.44 H Hgb 15.4 H Hct 46.6 H [place] % (Auto) 9.4 H [place] # 0.9 H BUN 21 H Glucose 102 H POC Glucose HDL Cholesterol 08/29/19 08/29/19 08/29/19 00:17 00:17 16:22 RBC Hgb Hct [place] % (Auto) [place] # BUN 19 H Glucose 110 H POC Glucose 128 H HDL Cholesterol 62 H 08/30/19 20:37 RBC Hgb Hct [place] % (Auto) [place] # BUN Glucose POC Glucose 109 H HDL Cholesterol Assessment and Plan (1) Acute CVA (cerebrovascular accident) with new left hemianopsia Current Visit: Yes Status: Acute Plan to address problem: Patient has completed stroke in the right FISCAL TECHNICIAN territory Not a candidate for TPA Aspirin and Plavix initiated Stroke work-up including MRI, carotid Doppler scan and echocardiogram ordered with MRI confirm the above finding and US is same, Echo showed EF 50-55% (2) Hypertension Current Visit: Yes Status: Chronic Qualifiers: Hypertension type: essential hypertension Qualified Code(s): I10 - Javier eunice (primary) hypertension Plan to address problem: Continue antihypertensives, she is with hx of X2 years not taking medications (3) Hypertensive emergency Current Visit: Yes Status: Acute Plan to address problem: Patient's blood pressure has been very high 225/112 Weaned off Cardene drip (4) Noncompliance Patient counseled about compliance and the ill effects of high blood pressure-- especially uncontrolled (5) DVT prophylaxis On heparin and GI prophylaxis (6) Hx of smoking 1PPd for years According to her she will smoke no more !!!! (7) hx of excessive alcohol intake Average 6PPd beer no sign of DT noted she is councelled about alcohol side effect (8) morbid obesity and possible underlying sleep apnea recommend try to loss weight , sleep study as out pt. (9) HLP she is on lipitor 80 mg
[2019-09-01] MEDS: ASPIRIN 325 MG TAB PO SCH (11:41)
[2019-09-01] MEDS: amLODIPine 10 MG TAB PO SCH (11:41)
[2019-09-01] MEDS: ACETAMINOPHEN 325 MG TAB PO PRN (11:45)
[2019-09-01] MEDS: CLOPIDOGREL 75 MG TAB PO SCH (11:45)
--- NOTE | 2019-09-01 12:13 | Discharge Summary ---
Providers - Providers Date of Admission: 08/28/19 17:55 Attending physician: TIBURCIO MATA MD 08/28/19 23:30 Consult to Physician [CONS] Routine Comment: Consulting Provider: MALLIKA YOUNG Physician Instructions: Reason For Exam: CVA 08/28/19 23:33 Occupational Therapy Evaluate and Treat [CONS] Routine Comment: Reason For Exam: Neuro deficits Physical Therapy Evaluation and Treat [CONS] Routine Comment: Reason For Exam: Neuro deficits 08/31/19 08:09 Speech Therapy Evaluation and Treat [CONS] Routine Reason For Exam: cva 09/01/19 08:34 Consult to Physician [CONS] Routine Comment: Consulting Provider: KRISTEL BUCIO Physician Instructions: Reason For Exam: cva with mass effect Primary care physician: SIGNAL SYSTEM TESTING MAINTAINER Hospitalization Reason for admission: cva Condition: Stable Hospital course: Patient is a 64 yo woman with a history of hypertension and tobacco dependency who [facility] with left sided weakness, headaches, nausea, difficulty walking and vision disturbances. Patient was found to have right PAPER WINDER stroke on CT head and No tPA given because last well known time >4.5 hours. * Head CT IMPRESSION: 1. Ischemic changes seen in the right PAPER WINDER territory as described above. No signs of hemorrhagic transformation. This exam was performed as part of a code stroke protocol. The exam was completed on 08/28/2019 2:16 PM. The exam was reviewed at 2:[address] Fernandez was notified at 2:[address] brain 08/31 showed same finding with silight increase edema noted in right PAPER WINDER distribution with no sign of shift or hydrocephalus. 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 * Neck CTA IMPRESSION: Atheromatous plaque in the left common carotid bifurcation with the 30% narrowing with complete occlusion R.ICA Neurology re-evaluated, no shift as noted by Neurology. Daughter at bedside, fall precautions discussed in detail dc held because patient fell, no reported LOC or trauma, but patient did get dizzy;therefore, get stat CT head. It did show slight increase in mass-effect but no displacement was noted. Neurology did eventually see the patient then evaluated and recommended the patient can continue with discharge again patient was offered inpatient rehab but family refused due to lack of insurance. 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 Current Visit: Yes Status: Acute Plan to address problem: Patient has completed stroke in the right PAPER WINDER territory Not a candidate for TPA Aspirin and Plavix initiated Stroke work-up including MRI, carotid Doppler scan and echocardiogram ordered No MRI because CTA of the head and CT of the neck were already done CT of the head showing right vertebral artery occlusion (2) Hypertension Current Visit: Yes Status: Chronic Qualifiers: Hypertension type: essential hypertension Qualified Code(s): I10 - Essential (primary) hypertension Plan to address problem: Continue antihypertensives (3) Hypertensive emergency Current Visit: Yes Status: Acute Plan to address problem: Patient's blood pressure has been very high 225/112 Weaned off Cardene drip Complaince stressted (4) Noncompliance Current Visit: Yes Status: Acute Plan to address problem: Patient counseled about compliance and the ill effects of high blood pressure--especially uncontrolled DC/w daughter Kristal at bedside, I have also spoken with son ELIO and Askew. Disposition: continue inpatient care, d/c Home with the medical center PT/OT, once bp stablizes. PT recommended inpatient rehab but patient doesn't have insurance. Blanca Levi, IRU/director mba is looking at the medical center IRU. Case management helping with disable form. Anticipate d/c tomorrow if bp stable, added Norvasc today Disposition: DC/TX-06 HOME UNDER HOME [facility] Time spent for discharge: 35 MINS Core Measure Documentation - Palliative Care Palliative Care/ Comfort Measures: Not Applicable - Core Measures Any of the following diagnoses?: stroke - Stroke Discharge Requirements Statin for LDL = or >70 mg/dl on DC: Yes Anticoag for atrial fib/atrial flutter: Not Applicable Antithrombotic for ischemic stroke: Yes Exam - Physical Exam Narrative exam: Gen: morbid obese, unkempt hair, bmi 45.2, ill appearing NAD, Awake, Alert, Orientated HEENT: NCAT, EOMI, PERRL, OP Clear Neck: supple, no adenopathy, no thyromegaly, no JVD CVS/Heart: RRR, normal S1S2, pulses present bilaterally Chest/Lungs: CTA B, Symmetrical chest expansion, good air entry bilaterally GI/Abdomen: soft, NTND, good bowel sounds, no guarding or rebound /Bladder: no suprapubic tenderness, no CVA or paraspinal tenderness Extermity/Skin: no c/c/e, no obvious rash MSK: FROM x 4 Neuro: CN 2-12 grossly intact except left hemianopsia, no new deficits Psych: calm - Constitutional Vitals: Temp Pulse Resp BP Pulse Ox 98.0 F 62 16 137/58 100 09/01/19 07:26 09/01/19 11:41 09/01/19 11:45 09/01/19 07:26 09/01/19 07:26 Plan Activity: advance as tolerated, no driving until cleared by PCP, fall precautions Diet: low fat Special Instructions: record daily weights, record daily BP diary, smoking cessation, physical therapy, occupational therapy Follow up with: [facility] [Provider Group] - 7 Days PRIMARY CAREMD [Primary Care Provider] - 3-5 Days RAUL STUBBS MD [Staff Physician] - 7 Days MALLIKA YOUNG MD [Staff Physician] - 7 Days Forms: Accompanied Note Prescriptions: AtorvaSTATin [Lipitor] 1 tab PO QHS #30 tablet Aspirin [Adult Aspirin] 81 mg PO QDAY #30 tablet. amLODIPine 10 mg PO QDAY #30 tablet Nicotine [Habitrol] 14 mg TD QDAY@2200 #7 patch oxyCODONE /ACETAMINOPHEN [Percocet 5/325 mg] 1 tab PO Q6H PRN #12 tablet PRN Reason: Pain , Severe (7-10) Clopidogrel [Plavix] 75 mg PO QDAY #30 tablet
[2019-09-01] MEDS: FAMOTIDINE 20 MG TAB PO SCH (14:08)
== END 2019-09-01 16:00 | disposition home health service (06) | DRG 65 ==
LOC: ED 13:02 → CC1 17:55 → 4A 08-29 11:43
PROVIDERS: ADMIT Internal Medicine; ATTEND Internal Medicine
DX: I63.9 Cerebral infarction, unspecified (principal); I16.1 Hypertensive emergency; Z68.42 Body mass index [BMI] 45.0-49.9, adult; G81.94 Hemiplegia, unspecified affecting left nondominant side; I10 Essential (primary) hypertension; F17.210 Nicotine dependence, cigarettes, uncomplicated; H54.62 Unqualified visual loss, left eye, normal vision right eye; E66.01 Morbid (severe) obesity due to excess calories; Z91.14 Patient's other noncompliance with medication regimen
CPT/HCPCS: 36415; 70450; 70496; 70498; 70551; 80048; 80053; 80061; 82962; 83036; 84484; 85025; 85610; 85670; 85730; 90686; 93005; 93010; 93306; 93880; 94760; 96365; 96375; 99406; G0378; A9270-GY; J0360; J2060; J2405; J7050; Q9967

== ENCOUNTER 2020-06-29 08:32 | Emergency (ER) | payer SELFPAY ==
[2020-06-29] MEDS ORDERED: amLODIPine 5 MG TAB PO ONE (11:12)
--- NOTE | 2020-06-29 11:16 | Emergency Department Report ---
HPI - General Chief Complaint: High BP Time Seen by Provider: 06/29/20 10:34 - HPI HPI: This is a 65-year-old female who presents to the emergency department with a complaint of elevated blood pressure. Patient is usually on amlodipine 10 mg but has been out of her medication for the past week. She says that she does check her blood pressure at home but also knows that it is elevated when she gets nauseated. The patient also complains of generalized headache, pressure sensation, that is currently 5 out of 10 in intensity. It is associated with s ome blurred vision. She denies any numbness or paresthesias, slurred speech, facial asymmetry, weakness, or any other neurological deficits. The patient does have a previous history of a CVA without any residual deficits. She denies any tobacco or illicit drug use. She does not have a primary care physician for follow-up. No recent travel or sick contacts at home. She has not taken anything for symptoms prior to presentation today. ED Past Medical Hx - Past Medical History Hx Hypertension: Yes (no meds) Hx CVA: Yes Hx Congestive Heart Failure: No Hx Asthma: No - Surgical History Additional Surgical History: Hernia surgery, Cysts removed from ovaries, Tonsillectomy - Social History Smoking Status: Current Every Day Smoker Substance Use Type: Alcohol - Medications Home Medications: Home Medications Medication Instructions Recorded Confirmed Last Taken Type Aspirin [Adult Aspirin] 81 mg PO QDAY #30 tablet. 08/31/19 06/29/20 06/15/20 Rx AtorvaSTATin [Lipitor] 1 tab PO QHS #30 tablet 06/29/20 Unknown Rx amLODIPine 10 mg PO QDAY #30 tablet 06/29/20 Unknown Rx ED Review of Systems ROS: Stated complaint: ELEVATED BLOOD PRESSURE, HEADACHE, DIZZY Other details as noted in HPI Comment: All other systems reviewed and negative Constitutional: denies: chills, fever Eyes: vision change. denies: eye pain ENT: denies: ear pain, throat pain Respiratory: denies: cough, shortness of breath Cardiovascular: denies: chest pain, palpitations Gastrointestinal: denies: abdominal pain, vomiting Genitourinary: denies: dysuria, discharge Musculoskeletal: denies: back pain, arthralgia Skin: denies: rash, lesions Neurological: headache. denies: numbness, paresthesias Physical Exam - Physical Exam Vital Signs: Vital Signs 06/29/20 06/29/20 06/29/20 08:52 10:23 10:48 Temperature 98.0 F Pulse Rate 52 L 52 L Respiratory 20 16 16 Rate Blood Pressure 201/93 Blood Pressure 210/107 [Left] O2 Sat by Pulse 94 98 Oximetry Physical Exam: GENERAL: The patient is well-developed well-nourished. HENT: Normocephalic. Atraumatic. Patient has moist mucous membranes. EYES: Extraocular motions are intact. No nystagmus. NECK: Supple. Trachea is midline. CHEST/LUNGS: Clear to auscultation. There is no respiratory distress noted. HEART/CARDIOVASCULAR: Regular. There is no tachycardia. There is no murmur. ABDOMEN: Abdomen is soft, nontender. Patient has normal bowel sounds. SKIN: Skin is warm and dry. NEURO: The patient is awake, alert, and oriented. The patient is cooperative. The patient has no focal neurologic deficits. Normal speech. Cranial nerves II through XII grossly intact. No pronator drift or dysmetria. No facial asymmetry. MUSCULOSKELETAL: There is no tenderness or deformity. There is no limitation range of motion. ED Course Vital Signs 06/29/20 06/29/20 06/29/20 08:52 10:23 10:48 Temperature 98.0 F Pulse Rate 52 L 52 L Respiratory 20 16 16 Rate Blood Pressure 201/93 Blood Pressure 210/107 [Left] O2 Sat by Pulse 94 98 Oximetry - Reevaluation(s) Reevaluation #1: 06/29/20 17:05 Lab Results 06/29/20 06/29/20 06/29/20 Range/Units 11:18 11: 11:18 WBC 7.9 (4.5-11.0) K/mm3 RBC 5.01 (3.65-5.03) M/mm3 Hgb 14.2 (10.1-14.3) gm/dl Hct 41.9 (30.3-42.9) % MCV 84 (79-97) fl MCH 28 (28-32) pg MCHC 34 (30-34) % RDW 13.2 (13.2-15.2) % Plt Count 255 (140-440) K/mm3 Lymph % (Auto) 27.4 (13.4-35.0) % [place] % (Auto) 7.4 H (0.0-7.3) % Eos % (Auto) 1.9 (0.0-4.3) % Baso % (Auto) 0.4 (0.0-1.8) % Lymph # (Auto) 2.2 (1.2-5.4) K/mm3 [place] # (Auto) 0.6 (0.0-0.8) K/mm3 Eos # (Auto) 0.2 (0.0-0.4) K/mm3 Baso # (Auto) 0.0 (0.0-0.1) K/mm3 Seg Neutrophils % 62.9 (40.0-70.0) % Seg Neutrophils # 5.0 (1.8-7.7) K/mm3 Sodium 139 (137-145) mmol/L Potassium 4.4 (3.6-5.0) mmol/L Chloride 104.0 (98-107) mmol/L Carbon Dioxide 25 (22-30) mmol/L Anion Gap 14 mmol/L BUN 11 (7-17) mg/dL Creatinine 0.9 (0.6-1.2) mg/dL Estimated GFR > 60 ml/min BUN/Creatinine Ratio 12 % Glucose 91 (65-100) mg/dL Calcium 9.4 (8.4-10.2) mg/dL TSH 1.040 (0.270-4.200) mlU/mL Reevaluation #2: 06/29/20 17:05 Vital Signs 06/29/20 06/29/20 06/29/20 08:52 10:18 10:23 Temperature 98.0 F Pulse Rate 52 L 58 L 52 L Respiratory 20 17 16 Rate Blood Pressure 201/93 Blood Pressure 210/107 [Left] O2 Sat by Pulse 94 98 Oximetry 06/29/20 06/29/20 06/29/20 10:30 10:46 10:48 Temperature Pulse Rate 50 L 49 L Respiratory 19 14 16 Rate Blood Pressure 210/107 191/92 Blood Pressure [Left] O2 Sat by Pulse 99 99 Oximetry 06/29/20 06/29/20 06/29/20 11:00 11:16 11:30 Temperature Pulse Rate 44 L 43 L 45 L Respiratory 11 L 14 16 Rate Blood Pressure 165/81 174/79 173/83 Blood Pressure [Left] O2 Sat by Pulse 100 99 100 Oximetry 06/29/20 06/29/20 06/29/20 11:46 12:12 12:16 Temperature Pulse Rate 41 L Respiratory 16 Rate Blood Pressure 172/128 152/74 152/74 Blood Pressure [Left] O2 Sat by Pulse 99 99 97 Oximetry 06/29/20 06/29/20 12:30 13:48 Temperature Pulse Rate 55 L Respiratory 18 Rate Blood Pressure 152/74 Blood Pressure 162/88 [Left] O2 Sat by Pulse 100 98 Oximetry ED Medical Decision Making - Lab Data Result diagrams: 06/29/20 11:18 06/29/20 11:18 - Radiology Data Radiology results: report reviewed CT head without contrast INDICATION : headache, blurred vision. TECHNIQUE: Axial imaging performed from the skull apex through the skull base without the use of contrast. All CT scans at this location are performed using CT dose reduction for ALARA by means of automated exposure control. COMPARISON: CT head from 08/31/2019 FINDINGS: Parenchyma: No acute intracranial hemorrhage or parenchymal abnormality. There is an old right occipital infarct with encephalomalacia. An old lacunar infarct in the right basal ganglia is also present. Ventricles: Ventricles are normal in size and appear symmetric. Soft tissues: Soft tissues including the orbits appear normal. Bones: No acute osseous abnormality. An old right mildly depressed lamina papyracea fracture is present. Sinuses: Sinuses and mastoid air cells are clear. IMPRESSION: No acute abnormality. - Medical Decision Making This patient presents to the emergency department with a complaint of elevated blood pressure, a generalized headache and some blurred vision. However the blurred vision appears to be chronic and the patient says that she has seen an lens matcher, told she has cataracts, and needs surgery. Otherwise she does not have any focal, motor or sensory deficits and her cranial nerves are intact. CT scan of the head without contrast does not show any bleed, shift, mass, ischemia, or any other acute process. Patient's labs have been mostly unremarkable. Patient has been out of her amlodipine for the past week. She was given a dose of amlodipine and her blood pressure came down to a more reasonable level. At times the patient's heart rate will go down into the high 40s but then will come back up into the 50s or low 60s. The patient will be given an outpatient referral for cardiology to follow-up regarding the bradycardia, but she otherwise appears asymptomatic from this. She has been given referrals for outpatient primary care physicians and prescriptions for her amlodipine and her statin. She will return to the emergency department with any worsening of her symptoms or with any acute distress. Patient was seen ambulatory within the emergency department and both appears and feels stable. Critical Care Time: No Critical care attestation.: If time is entered above; I have spent that time in minutes in the direct care of this critically ill patient, excluding procedure time. ED Disposition Clinical Impression: Bradycardia Headache Qualifiers: Headache type: unspecified Headache chronicity pattern: unspecified pattern Intractability: not intractable Qualified Code(s): R51.9 - Headache, unspecified Hypertension Qualifiers: Hypertension type: essential hypertension Qualified Code(s): I10 - Essential (primary) hypertension Disposition: OP ADMIT IP TO THIS HOSP Is pt being admited?: Yes Condition: Stable Instructions: Bradycardia, Adult, Hypertension, Adult, Hypertension (ED) Additional Instructions: Please follow-up with a primary care physician in the next few days. I'm giving you a referral for a local glue jointer operator, Dr. Quinones, to follow-up regarding the low heart rate seen during your emergency department visit today. Please try and stay away from foods that are high in salt and caffeinated products. Please try and quit smoking. Keep a blood pressure log. Return to the emergency department with any worsening of your symptoms, new or concerning symptoms not addressed during this current emergency department visit, or with any acute distress. Prescriptions: AtorvaSTATin [Lipitor] 1 tab PO QHS #30 tablet amLODIPine 10 mg PO QDAY #30 tablet Referrals: KARINA HERNANDEZ MD [Primary Care Provider] - 3-5 Days BRYCE QUINONES MD [Staff Physician] - 3-5 Days [facility] [Provider Group] - 3-5 Days Time of Disposition: 13:28
[2020-06-29 11:53] LABS: Basophils % (Auto) 0.4 % (0.0-1.8); Eosinophils # (Auto) 0.2 K/mm3 (0.0-0.4); Eosinophils % (Auto) 1.9 % (0.0-4.3); Hematocrit 41.9 % (30.3-42.9); Hemoglobin 14.2 gm/dl (10.1-14.3); Lymphocytes # (Auto) 2.2 K/mm3 (1.2-5.4); Lymphocytes % (Auto) 27.4 % (13.4-35.0); Mean Corpuscular HGB Conc 34 % (30-34); Mean Corpuscular Volume 84 fl (79-97); Monocytes # (Auto) 0.6 K/mm3 (0.0-0.8); Monocytes % (Auto) 7.4 % (0.0-7.3); Platelet Count 255 K/mm3 (140-440); Red Blood Count 5.01 M/mm3 (3.65-5.03); Red Cell Distribution Width 13.2 % (13.2-15.2)
[2020-06-29 11:54] LABS: BUN/Creatinine Ratio 12; Blood Urea Nitrogen 11 mg/dL (7-17); Calcium 9.4 mg/dL (8.4-10.2); Hemolysis Index 35
--- NOTE | 2020-06-29 12:40 | Cat Scan Report ---
CT head without contrast INDICATION : headache, blurred vision. TECHNIQUE: Axial imaging performed from the skull apex through the skull base without the use of con trast. All CT scans at this location are performed using CT dose reduction for ALARA by means of aut omated exposure control. COMPARISON: CT head from 08/31/2019 FINDINGS: Parenchyma: No acute intracranial hemorrhage or parenchymal abnormality. There is an old right occip ital infarct with encephalomalacia. An old lacunar infarct in the right basal ganglia is also present . Ventricles: Ventricles are normal in size and appear symmetric. Soft tissues: Soft tissues including the orbits appear normal. Bones: No acute osseous abnormality. An old right mildly depressed lamina papyracea fracture is pres ent. Sinuses: Sinuses and mastoid air cells are clear. IMPRESSION: No acute abnormality. Signer Name: Carl Giraldo MD Signed: 06/29/2020 12:39 PM Workstation Name: [id number]
[2020-06-29] MEDS ORDERED: ENALAPRILAT 2.5 MG/2 ML INJ IV ONE (12:45)
[2020-06-29 13:50] VITALS: BP 162/88
== END 2020-06-29 13:48 | disposition admitted as inpatient to this hospital (09) ==
LOC: ED 08:32
DX: I10 Essential (primary) hypertension (principal); R00.1 Bradycardia, unspecified; R51.9 Headache, unspecified; F17.200 Nicotine dependence, unspecified, uncomplicated; Z79.899 Other long term (current) drug therapy; Z90.49 Acquired absence of other specified parts of digestive tract; Z98.890 Other specified postprocedural states; Z86.73 Personal history of transient ischemic attack (TIA), and cerebral infarction without residual deficits
CPT/HCPCS: 36415; 70450; 80048; 84443; 85025; 93005

== ENCOUNTER 2020-08-07 12:00 | Emergency (ER) | payer SELFPAY ==
[2020-08-07 12:09] VITALS: BP 169/84
--- NOTE | 2020-08-07 12:15 | Emergency Department Report ---
Chief Complaint: Neuro Symptoms/Deficit Stated Complaint: HIGH BLOOD PRESSURE - HPI History of Present Illness: 65-year-old -[place] female presents to the emergency room stating she needs a refill on her blood pressure medication. Patient has been seen here for the last 2 months for the same complaint. Patient reports that she has an appointment with [facility] on 18 August. Patient denies any chest pain or shortness of breath. Patient does report chronic history of dizziness with unsteady gait since she has had her stroke back in August 2019. Patient denies any new symptoms or complaints. - Exam Vital Signs: Vital Signs 08/07/20 12:08 Temperature 98.4 F Pulse Rate 58 L Respiratory 20 Rate Blood Pressure 169/84 O2 Sat by Pulse 96 Oximetry Physical Exam: Alert and oriented x3 no acute distress nontoxic in appearance Stable gait no difficulty ambulating no shortness of breath no accessory muscles use MSE screening note: Focused history and physical exam performed. Due to findings the following was ordered: 65-year-old -[place] female presents to the emergency room stating she needs a refill on her blood pressure medication. Patient has been seen here for the last 2 months for the same complaint. Patient reports that she has an appointment with [facility] on 18 August. Patient denies any chest pain or shortness of breath. Patient does report chronic history of dizziness with unsteady gait since she has had her stroke back in August 2019. Patient denies any new symptoms or complaints. Discussed with patient she can follow-up with Dr. Patrice Saucedo tomorrow morning to get a refill of her medication. ED Disposition for MSE Clinical Impression: Noncompliance, Hypertension Disposition: MED SCREENING EXAM-LEFT Is pt being admited?: No Does the pt Need Aspirin: No Condition: Stable Instructions: Hypertension (ED) Referrals: KAM CERVANTES MD [Staff Physician] - 3-5 Days
== END 2020-08-08 02:23 | disposition left against medical advice (07) ==
LOC: ED 12:00
DX: I10 Essential (primary) hypertension (principal); Z53.21 Procedure and treatment not carried out due to patient leaving prior to being seen by health care provider